=== PATIENT | female | born 1990 | race Caucasian/White ===

== ENCOUNTER 2018-09-20 22:43 | Emergency (ER) | payer MEDICAID, OTHER ==
--- NOTE | 2018-09-21 01:32 | ER Document Report ---
ED General - General Mode of Arrival: Ambulatory Information source: Patient TRAVEL OUTSIDE OF THE [place] IN LAST 30 DAYS: No <JEREMIAH KIRKLAND - Last Filed: 09/21/18 02:31> <DEANDRE ARAUJO - Last Filed: 09/21/18 06:57> <JODI RENEE - Last Filed: 09/24/18 11:03> - General Chief Complaint: Anxiety Stated Complaint: DIZZYNESS Time Seen by Provider: 09/21/18 01:01 Notes: Patient is a 28-year-old female with anxiety presenting to the emergency department complaining of multiple symptoms including dizziness, headache, heart palpitations and numbness. 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 She describes the pain as a pressure at the back of her head and further states she began to have heart palpitations and felt her entire body go numb. She also states she had a near syncopal episode which she describes as "blacking out". She states her dizziness is exacerbated with walking and relived when sitting down. She denies any extra stress lately or vomiting. Patient states she was diagnosed with strep throat last week. (JEREMIAH KIRKLAND) - Related Data Allergies/Adverse Reactions: No Known Allergies Allergy (Unverified 09/14/18 18:35) Past Medical History - General Information source: Patient - Social History Smoking Status: Never Smoker Cigarette use (# per day): No Chew tobacco use (# tins/day): No Smoking Education Provided: No Frequency of alcohol use: None Family History: Reviewed & Not Pertinent Psychiatric Medical History: Reports: Hx Anxiety, Hx Depression Past Surgical History: Reports: Hx Section, Hx Oral Surgery - wisdom teeth - Immunizations Immunizations up to date: Yes <JEREMIAH KIRKLAND - Last Filed: 09/21/18 02:31> Review of Systems - Review of Systems Constitutional: No symptoms reported EENT: No symptoms reported Cardiovascular: See HPI, Heart racing, Dizziness Respiratory: No symptoms reported Gastrointestinal: No symptoms reported Genitourinary: No symptoms reported Female Genitourinary: No symptoms reported Musculoskeletal: No symptoms reported Skin: No symptoms reported Neurological/Psychological: See HPI, Numbness <JEREMIAH KIRKLAND - Last Filed: 09/21/18 02:31> Physical Exam <JEREMIAH KIRKLAND - Last Filed: 09/21/18 02:31> <DEANDRE ARAUJO - Last Filed: 09/21/18 06:57> <JODI RENEE - Last Filed: 09/24/18 11:03> - Vital signs Vitals: Temp Pulse Resp BP Pulse Ox 98.5 F 105 H 14 128/71 H 97 09/20/18 22:43 09/20/18 22:43 09/20/18 22:43 09/20/18 22:43 09/20/18 22:43 - Notes Notes: GENERAL: Alert, interacts well. No acute distress. HEAD: Normocephalic, atraumatic. EYES: Pupils equal, round, and reactive to light. Extraocular movements intact. ENT: Oral mucosa moist, tongue midline. NECK: Full range of motion. Supple. Trachea midline. LUNGS: Clear to auscultation bilaterally, no wheezes, rales, or rhonchi. No respiratory distress. HEART: Regular rate and rhythm. No murmurs, gallops, or rubs. ABDOMEN: Soft, non-tender. Non-distended. Bowel sounds present in all 4 quadrants. EXTREMITIES: Moves all 4 extremities spontaneously. No edema, radial and dorsalis pedis pulses 2/4 bilaterally. No cyanosis. NEUROLOGICAL: Alert and oriented x3. Normal speech. Cranial nerves II through XII grossly intact. Finger to nose testing intact. No pronator drift. Able to ambulate however she states ambulating makes her feel off balance. PSYCH: Normal affect, normal mood. SKIN: Warm, dry, normal turgor. No rashes or lesions noted. (JEREMIAH KIRKLAND) Course <JEREMIAH KIRKLAND - Last Filed: 09/21/18 02:31> - Laboratory Result Diagrams: 09/21/18 04:26 <DEANDRE ARAUJO - Last Filed: 09/21/18 06:57> - Laboratory Result Diagrams: 09/21/18 04:26 - Diagnostic Test Radiology reviewed: Image reviewed, Reports reviewed - EKG Interpretation by Me EKG shows normal: Sinus rhythm Rate: Normal Rhythm: NSR <JODI RENEE - Last Filed: 09/24/18 11:03> - Re-evaluation Re-evalutation: 09/21/18 06:57 Patient was checked out to me by Dr. Renee for recheck of her carboxyhemoglobin level and reevaluation. Her carboxy hemoglobin level came back at 10.5. I did recheck it and it using the proximal hemoglobin pulse oximeter. Her level is now between 6 and 7. She is able to walk without ataxia. She looks well. She has just a very mild headache. No vomiting. He has normal coordination of movements. Feel she is safe to be discharged home. I encouraged her to return to the ER immediately if she has recurrent difficulty walking, severe headache, vomiting, or she feels unwell in any way. Patient agrees with plan will be discharged home. Dictation of this chart was performed using voice recognition software; therefore, there may be some unintended grammatical errors. 09/21/18 06:57 (DEANDRE ARAUJO) 09/21/18 03:17 Patient resting comfortably in the emergency department. CT head shows no acute findings. EKG shows no concerning findings. Patient has no family history of sudden . Her symptoms are relieved by rest and worse with movement consistent with vertigo. However, patient states she was experiencing a headache therefore CT was performed to rule out any acute pathology including subarachnoid hemorrhage. We will provide meclizine for diagnosis of BPPV. Return precautions provided 09/21/18 04:16 Upon discharge EMS called with multiple complaints of similar symptoms from same hotel concern for carbon monoxide poisoning. Will run carboxyhemoglobin at this time. (JODI RENEE) - Vital Signs Vital signs: Temp Pulse Resp BP Pulse Ox 98.5 F 105 H 22 H 126/82 H 100 09/20/18 22:43 09/20/18 22:43 09/21/18 06:01 09/21/18 06:00 09/21/18 06:01 - Laboratory Laboratory results interpreted by me: 09/21/18 09/21/18 04:26 04:26 Carboxyhemoglobin 10.5 H Creatinine 0.45 L Glucose 142 H Discharge <JEREMIAH KIRKLAND - Last Filed: 09/21/18 02:31> <DEANDRE ARAUJO - Last Filed: 09/21/18 06:57> <JODI RENEE - Last Filed: 09/24/18 11:03> - Discharge Clinical Impression: Carbon monoxide poisoning Qualifiers: Encounter type: initial encounter Injury intent: accidental or unintentional Qualified Code(s): T58.91XA - Toxic effect of carbon monoxide from unspecified source, accidental (unintentional), initial encounter Condition: Good Disposition: HOME, SELF-CARE Additional Instructions: He had an exposure to carbon monoxide. This caused your dizziness and headache. Currently your Carbon monoxide levels are back to an acceptable range. We feel that you are safe to be discharged home. Please rest over the next 24 hours. Please return to the ER if you have recurrence of difficulty walking, worsening dizziness, recurring headaches, vomiting, or if you feel unwell. Follow up with your doctor on Monday for reevaluation. Do not go back to the hotel until it is declared safe by the fire department Referrals: BHUPINDER THURMAN MD [Primary Care Provider] - Follow up as needed Scribe Attestation: 09/24/18 11:03 I personally performed the services described in the documentation, reviewed and edited the documentation which was dictated to the scribe in my presence, and it accurately records my words and actions. (JODI RENEE) Scribe Documentation - Scribe Written by Kashmir:: Kashmir Anderson, 09/21/2018 01:53 acting as scribe for :: Tim <JEREMIAH KIRKLAND - Last Filed: 09/21/18 02:31>
--- NOTE | 2018-09-21 02:35 | RADIOLOGY REPORT (SQ) ---
EXAM DESCRIPTION: CT HEAD WITHOUT IV CONTRAST COMPLETED DATE/TME: 09/21/2018 01:43 CLINICAL HISTORY: 28 years, Female, dizzy, headache, sudden onset, r/o SAH COMPARISON: None. TECHNIQUE: 189 Images stored on PACS. All CT scanners at this facility use dose modulation, iterative reconstruction, and/or weight based dosing when appropriate to reduce radiation dose to as low as reasonably achievable (ALARA). [facility]: Dose Right [facility]: CareDose [facility]: Dose Right [facility]: Teradose 4D [facility]: [employer] Technologies LIMITATIONS: None. FINDINGS: The globes are intact. The paranasal sinuses show minor mucosal thickening of the right maxillary sinus. No displaced or depressed skull fracture. No intra or extra-axial hemorrhage. CT is limited for evaluation of acute infarct. No CT evidence for large or territorial acute infarct. No mass, mass effect, or midline shift. IMPRESSION: Minor mucosal thickening right maxillary sinus. Remainder is unremarkable TECHNICAL DOCUMENTATION: Quality ID # [id number]: Final reports with documentation of one or more dose reduction techniques (e.g., Automated exposure control, adjustment of the mA and/or kV according to patient size, use of iterative reconstruction technique) 2010 [employer]- All Rights Reserved
[2018-09-21] MEDS ORDERED: MECLIZINE HCL 25 MG TABLET PO ONE (02:44)
[2018-09-21 04:53] LABS: ANION GAP 14 (5-19); BLOOD UREA NITROGEN 8 mg/dL (7-20); CALCIUM 9.5 mg/dL (8.4-10.2); CARBON DIOXIDE 25 mmol/L (22-30); CHLORIDE 102 mmol/L (98-107); GLUCOSE 142 mg/dL (75-110); POTASSIUM 4.6 mmol/L (3.6-5.0); SODIUM 140.9 mmol/L (137-145)
[2018-09-21 07:02] VITALS: BP 126/82
--- NOTE | 2018-09-21 12:40 | EKG REPORT ---
SEVERITY:- BORDERLINE ECG - SINUS RHYTHM BORDERLINE PROLONGED QT INTERVAL : Confirmed by: Elisa Bosch MD 21-Sep-2018 12:39:59
== END 2018-09-21 07:08 | disposition home or self-care (01) ==
LOC: ER 22:43
DX: F41.9 Anxiety disorder, unspecified (principal); R42 Dizziness and giddiness; R51 Headache; T58.91XA Toxic effect of carbon monoxide from unspecified source, accidental (unintentional), initial encounter; X58.XXXA Exposure to other specified factors, initial encounter; Y99.0 Civilian activity done for income or pay
CPT/HCPCS: 36415; 70450; 80048; 82375; 93005; 93010; 99284

== ENCOUNTER → 2018-11-15 | Outpatient (CLI) | payer MEDICAID ==
--- NOTE | 2018-11-15 15:16 | RADIOLOGY REPORT (SQ) ---
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 NUMBER OF VIEWS: Two views. TECHNIQUE: AP and lateral radiographic images acquired of the thoracic spine. LIMITATIONS: None. FINDINGS: MINERALIZATION: Normal. ALIGNMENT: 2 thoracolumbar scoliosis convex left. VERTEBRAE: No fracture or bone lesion. Maintained height, normal segmentation. DISCS: No significant loss of height or significant narrowing. No large osteophytes. HARDWARE: None in the spine. MEDIASTINUM AND SOFT TISSUES: Normal heart size and aortic contour. No soft tissue abnormality. VISUALIZED LUNG CASEY: Clear. OTHER: No other significant finding. IMPRESSION: 2 thoracolumbar scoliosis convex left. TECHNICAL DOCUMENTATION: JOB ID: [id number] [employer]- All Rights Reserved Reading location - IP/workstation name: [email or web address]
== END ==
LOC: OD 11:43
PROVIDERS: ATTEND Nurse Practitioner Family
DX: M40.00 Postural kyphosis, site unspecified (principal)
CPT/HCPCS: 72070

== ENCOUNTER 2020-06-06 09:10 | Emergency (ER) | payer BC, MEDICAID, OTHER ==
--- NOTE | 2020-06-06 11:53 | EKG REPORT ---
SEVERITY:- NORMAL ECG - SINUS RHYTHM : Confirmed by: Abelino Dickey MD 06-Jun-2020 11:52:35
[2020-06-06 12:22] LABS: ABSOLUTE BASOPHILS # (AUTO) 0.1 10^3/uL (0.0-0.2); ABSOLUTE EOSINOPHILS # (AUTO) 0.1 10^3/uL (0.0-0.6); ABSOLUTE LYMPHOCYTES (AUTO) 2.5 10^3/uL (0.5-4.7); ABSOLUTE MONOCYTES (AUTO) 0.4 10^3/uL (0.1-1.4); BASOPHILS % (AUTO) 0.8 % (0-2); EOSINOPHILS % (AUTO) 1.5 % (0-6); HEMATOCRIT 37.9 % (36.0-47.0); HEMOGLOBIN 12.5 g/dL (12.0-15.5); LYMPHOCYTES % (AUTO) 30.3 % (13-45); MEAN CORPUSCULAR HEMOGLOBIN 26.2 pg (27.0-33.4); MEAN CORPUSCULAR VOLUME 79 fl (80-97); MONOCYTES % (AUTO) 5.5 % (3-13); PLATELET COUNT 258 10^3/uL (150-450); RED BLOOD COUNT 4.78 10^6/uL (3.72-5.28); RED CELL DISTRIBUTION WIDTH 14.7 % (11.5-14.0); SEGMENTED NEUTROPHILS % (AUTO) 61.9 % (42-78); TOTAL CELLS COUNTED % (AUTO) 100 %; WHITE BLOOD COUNT 8.2 10^3/uL (4.0-10.5)
--- NOTE | 2020-06-06 12:35 | ER Document Report ---
ED Respiratory Problem - General Chief Complaint: Shortness Of Breath Stated Complaint: SHORTNESS OF BREATH Time Seen by Provider: 06/06/20 10:01 Primary Care Provider: MAYTE JEAN BAPTISTE DO [NO LOCAL MD] - Follow up in 3-5 days Notes: Patient is a 30-year-old female who presents to the emergency department with a chief complaint of shortness of breath. Patient states that she has felt short of breath for the past 3 days. She states that every time she takes a deep breath in, she ends up having pain in her chest. Patient states that she vapes. She is currently on Mirena. Denies any contact with anybody under i nvestigation of COVID-19 or anyone who has tested positive for COVID-19. Denies any fever, body aches, or chills. Denies any nausea, vomiting, or diarrhea. TRAVEL OUTSIDE OF THE [place] IN LAST 30 DAYS: No - Related Data Allergies/Adverse Reactions: No Known Allergies Allergy (Verified 06/06/20 10:07) Past Medical History - Social History Smoking Status: Current Every Day Smoker Family History: Reviewed & Not Pertinent Patient has homicidal ideation: No Renal/ Medical History: Denies: Hx Peritoneal Dialysis Psychiatric Medical History: Reports: Hx Anxiety, Hx Depression Past Surgical History: Reports: Hx Section, Hx Oral Surgery - wisdom teeth - Immunizations Immunizations up to date: Yes Review of Systems - Review of Systems Notes: REVIEW OF SYSTEMS: CONSTITUTIONAL : Denies recent illness. Denies recent unintentional weight loss. Denies fever, chills, or sweats. EENT: Denies eye, ear, throat, or mouth pain, discharge, or symptoms. Denies nasal or sinus congestion. CARDIOVASCULAR: Denies chest pain. RESPIRATORY: GASTROINTESTINAL: Denies nausea, vomiting, and diarrhea. Denies abdominal pain. Denies constipation. GENITOURINARY: Denies difficulty urinating, burning, blood in urine, urgency or frequency. MUSCULOSKELETAL: Denies neck and back pain. Denies joint pain or swelling. SKIN: Denies rash, itchiness, or lesions HEMATOLOGIC : Denies easy bruising or bleeding. LYMPHATIC: Denies swollen, painful, enlarged glands. NEUROLOGICAL: Denies no numbness or tingling denies weakness. Denies headache. Denies altered mental status. Denies alteration in speech. PSYCHIATRIC: Denies stress, anxiety, alteration in sleep patterns, or depression. All other systems reviewed and negative. Physical Exam - Vital signs Vitals: Temp Pulse Resp BP Pulse Ox 98.7 F 85 16 125/77 100 06/06/20 10:08 06/06/20 10:08 06/06/20 10:08 06/06/20 10:08 06/06/20 10:08 - Notes Notes: PHYSICAL EXAMINATION: GENERAL: Appears well, healthy, well-nourished, no acute distress. HEAD: Normocephalic, atraumatic. EYES: PERRL, conjunctiva normal, all extraocular movements intact, sclera nonicteric ENT: Moist mucous membranes. NECK: Supple, no noticeable swelling, redness, rash. Normal range of motion. LUNGS: Equal breath sounds bilaterally and clear to auscultation. No wheezes rales or rhonchi. CARDIOVASCULAR: S1-S2, regular rate, regular rhythm. Radial pulses 2+, normal. ABDOMEN: Normoactive bowel sounds. Soft, nontender, no guarding, no rebound te nderness, and no masses palpated. EXTREMITIES: Normal strength and range of motion, no pitting or edema. No cyanosis. NEUROLOGICAL: Moves all extremities upon command. Strength 5/5 in all extremi ties. PSYCH: Normal mood, normal affect. SKIN: Warm, dry. No rash, lesions, ulcerations noted. Normal skin turgor. Course - Re-evaluation Re-evalutation: 06/06/20 13:10 Hematology is unremarkable. D-dimer is negative,. I have a low suspicion for a pulmonary emboli based off of this laboratory study. Chemistries are unremar kable. Chest x-ray is normal. I reviewed it myself and there was no pneumonia noted. I had a lengthy conversation with the patient in regards to her vaping. I advised that she stop vaping. We will also start her on cetirizine, as this may be allergy related. She is in agreement with this plan. She will follow-up with her primary care provider. Follow-up precautions were given. Verbal disc harge instructions were given to the patient. They verbalized understanding. They are stable for discharge. - Vital Signs Vital signs: Temp Pulse Resp BP Pulse Ox 98.8 F 84 16 124/83 100 06/06/20 13:21 06/06/20 13:21 06/06/20 13:21 06/06/20 13:21 06/06/20 13:21 - Laboratory Result Diagrams: 06/06/20 11:44 06/06/20 11:44 Laboratory results interpreted by me: 06/06/20 06/06/20 11:44 11:44 MCV 79 L MCH 26.2 L RDW 14.7 H Glucose 111 H Calcium 10.3 H Total Protein 8.6 H Discharge - Discharge Clinical Impression: Shortness of breath, Seasonal allergies Condition: Stable Disposition: HOME, SELF-CARE Additional Instructions: You were seen today in the emergency department for shortness of breath. The most likely cause of your shortness of breath is from vaping. Please stop v aping, this will help you breathe better. Start cetirizine to help with seasonal allergies. Follow-up with your primary care provider. Prescriptions: Cetirizine HCl [All Day Allergy] 10 mg PO DAILY #30 tablet Referrals: MAYTE JEAN BAPTISET DO [NO LOCAL MD] - Follow up in 3-5 days
[2020-06-06 12:44] LABS: ALBUMIN 4.9 g/dL (3.5-5.0); ALKALINE PHOSPHATASE 50 U/L (38-126); ANION GAP 11 (5-19); ASPARTATE AMINO TRANSFERASE 26 U/L (14-36); BILIRUBIN,TOTAL 0.6 mg/dL (0.2-1.3); BLOOD UREA NITROGEN 11 mg/dL (7-20); CALCIUM 10.3 mg/dL (8.4-10.2); CARBON DIOXIDE 27 mmol/L (22-30); CHLORIDE 103 mmol/L (98-107); GLUCOSE 111 mg/dL (75-110); POTASSIUM 4.8 mmol/L (3.6-5.0); TOTAL PROTEIN 8.6 g/dL (6.3-8.2)
--- NOTE | 2020-06-06 12:48 | RADIOLOGY REPORT (SQ) ---
EXAM DESCRIPTION: CHEST SINGLE VIEW IMAGES COMPLETED DATE/TIME: 06/06/2020 12:37 pm REASON FOR STUDY: shortness of breath COMPARISON: None. EXAM PARAMETERS: NUMBER OF VIEWS: One view. TECHNIQUE: Single frontal radiographic view of the chest acquired. RADIATION DOSE: NA LIMITATIONS: None. FINDINGS: LUNGS AND PLEURA: No opacities, masses or pneumothorax. No pleural effusion. MEDIASTINUM AND HILAR STRUCTURES: No masses. Contour normal. HEART AND VASCULAR STRUCTURES: Heart normal in size. Normal vasculature. BONES: No acute findings. HARDWARE: None in the chest. OTHER: No other significant finding. IMPRESSION: NO ACUTE RADIOGRAPHIC FINDING IN THE CHEST. TECHNICAL DOCUMENTATION: JOB ID: [id number] 2010 [employer]- All Rights Reserved Reading location - IP/workstation name: [email or web address]
[2020-06-06 13:24] VITALS: BP 124/83
== END 2020-06-06 13:26 | disposition home or self-care (01) ==
LOC: ER 09:10
DX: R06.02 Shortness of breath (principal); J30.2 Other seasonal allergic rhinitis; F17.290 Nicotine dependence, other tobacco product, uncomplicated
CPT/HCPCS: 36415; 71045; 80053; 83690; 85025; 85379; 93005; 93010; 99284

== ENCOUNTER 2020-08-18 15:46 | Emergency (ER) | payer BC ==
--- NOTE | 2020-08-18 16:35 | ER Document Report ---
ED Medical Screen (RME) - General Stated Complaint: CHEST PAIN,BODY NUMBNESS Time Seen by Provider: 08/18/20 16:19 Primary Care Provider: MAYTE JEAN BAPTISTE DO [Primary Care Provider] - Follow up as needed TRAVEL OUTSIDE OF THE [place] IN LAST 30 DAYS: No - HPI Notes: 08/18/20 16:33 30 year old female to the ED with C/O right sided chest pain with associated bilateral arm numbness, facial numbness, palpitations that started this morning at 10:30 while she was driving her car. States that she pulled over during the episode and called the medics. They felt like she may have had a panic attack and sent her home. She states throughout the day she keeps having these episodes. She has never had a panic attack before and she states she doesn't feel particularly anxious. She vapes. She is not diabetic. Does not have elevated blood pressure or hyperlipidemia. no family history of AMI. I have performed a brief medical screening exam on the patient and determined that she needs further evaluations. I have placed initial orders to help expedite her care. - Related Data Allergies/Adverse Reactions: No Known Allergies Allergy (Verified 06/06/20 10:07) Past Medical History Renal/ Medical History: Denies: Hx Peritoneal Dialysis Psychiatric Medical History: Reports: Hx Anxiety, Hx Depression Past Surgical History: Reports: Hx Section, Hx Oral Surgery - wisdom teeth - Immunizations Immunizations up to date: Yes Physical Exam - Vital signs Vitals: Temp Pulse Resp BP Pulse Ox 98.8 F 104 H 18 127/69 H 99 08/18/20 16:05 08/18/20 16:05 08/18/20 16:05 08/18/20 16:05 08/18/20 16:05 Course - Vital Signs Vital signs: Temp Pulse Resp BP Pulse Ox 98.8 F 104 H 18 127/69 H 99 08/18/20 16:05 08/18/20 16:05 08/18/20 16:05 08/18/20 16:05 08/18/20 16:05 Doctor's Discharge - Discharge Referrals: MAYTE JEAN BAPTISTE DO [Primary Care Provider] - Follow up as needed
--- NOTE | 2020-08-18 17:02 | RADIOLOGY REPORT (SQ) ---
EXAM DESCRIPTION: CHEST SINGLE VIEW IMAGES COMPLETED DATE/TIME: 08/18/2020 4:46 pm REASON FOR STUDY: chest pain, near syncope, palpitations COMPARISON: 06/06/2020 EXAM PARAMETERS: NUMBER OF VIEWS: One view. TECHNIQUE: Single frontal radiographic view of the chest acquired. RADIATION DOSE: NA LIMITATIONS: None. FINDINGS: LUNGS AND PLEURA: No opacities, masses or pneumothorax. No pleural effusion. MEDIASTINUM AND HILAR STRUCTURES: No masses. Contour normal. HEART AND VASCULAR STRUCTURES: Heart normal in size. Normal vasculature. BONES: No acute findings. HARDWARE: None in the chest. OTHER: No other significant finding. IMPRESSION: NO ACUTE RADIOGRAPHIC FINDING IN THE CHEST. TECHNICAL DOCUMENTATION: JOB ID: [id number] 2010 [employer]- All Rights Reserved Reading location - IP/workstation name: [email or web address]
[2020-08-18 17:12] LABS: ABSOLUTE BASOPHILS # (AUTO) 0.1 10^3/uL (0.0-0.2); ABSOLUTE EOSINOPHILS # (AUTO) 0.1 10^3/uL (0.0-0.6); ABSOLUTE LYMPHOCYTES (AUTO) 2.1 10^3/uL (0.5-4.7); ABSOLUTE MONOCYTES (AUTO) 0.5 10^3/uL (0.1-1.4); BASOPHILS % (AUTO) 0.5 % (0-2); EOSINOPHILS % (AUTO) 0.8 % (0-6); HEMATOCRIT 33.9 % (36.0-47.0); HEMOGLOBIN 11.3 g/dL (12.0-15.5); LYMPHOCYTES % (AUTO) 18.3 % (13-45); MEAN CORPUSCULAR HEMOGLOBIN 26.5 pg (27.0-33.4); MEAN CORPUSCULAR HGB CONC 33.3 g/dL (32.0-36.0); MEAN CORPUSCULAR VOLUME 80 fl (80-97); PLATELET COUNT 259 10^3/uL (150-450); RED BLOOD COUNT 4.27 10^6/uL (3.72-5.28); SEGMENTED NEUTROPHILS % (AUTO) 76.4 % (42-78); TOTAL CELLS COUNTED % (AUTO) 100 %; WHITE BLOOD COUNT 11.7 10^3/uL (4.0-10.5)
[2020-08-18 17:19] LABS: INTERNATIONAL RATION (INR) 1.01; PROTHROMBIN TIME 13.5 SEC (11.4-15.4)
[2020-08-18 17:29] LABS: APPEARANCE,URINE CLEAR; BILIRUBIN,URINE NEGATIVE (NEGATIVE); COLOR,URINE STRAW; GLUCOSE, URINE NEGATIVE (NEGATIVE); KETONES,URINE NEGATIVE (NEGATIVE); PROTEIN,URINE NEGATIVE (NEGATIVE); URINE SPECIFIC GRAVITY 1.006; UROBILINOGEN,URINE NEGATIVE mg/dL (<2.0)
[2020-08-18 17:30] LABS: ALBUMIN 4.5 g/dL (3.5-5.0); ALKALINE PHOSPHATASE 53 U/L (38-126); ANION GAP 9 (5-19); ASPARTATE AMINO TRANSFERASE 21 U/L (14-36); BILIRUBIN,DIRECT 0.2 mg/dL (0.0-0.4); BILIRUBIN,TOTAL 0.6 mg/dL (0.2-1.3); BLOOD UREA NITROGEN 8 mg/dL (7-20); CALCIUM 9.8 mg/dL (8.4-10.2); CARBON DIOXIDE 25 mmol/L (22-30); CHLORIDE 104 mmol/L (98-107); GLUCOSE 100 mg/dL (75-110); POTASSIUM 4.7 mmol/L (3.6-5.0); TOTAL PROTEIN 7.4 g/dL (6.3-8.2)
[2020-08-18] MEDS ORDERED: NORMAL SALINE 1000 ML 1,000 ML IV ONE (22:02)
--- NOTE | 2020-08-18 22:07 | ER Document Report ---
ED General - General Stated Complaint: CHEST PAIN,BODY NUMBNESS Time Seen by Provider: 08/18/20 16:19 Primary Care Provider: MAYTE JEAN BAPTISTE DO [Primary Care Provider] - Follow up as needed TRAVEL OUTSIDE OF THE [place] IN LAST 30 DAYS: No - HPI Patient complains to provider of: chest pain Notes: 30 y/o previously healthy female who presents after developing total body numbness and right sided chest pain at about 10 am she called ems and they thought she was having a panic attack she subsequently "fought it" at home until about 4 pm when she came to the ED she now feels largely OK aside from ongoing right sided chest pain she denies shortness of breath, fever, chills or cough no leg swelling or h/o dvt or pe she does vape regularly - Related Data Allergies/Adverse Reactions: No Known Allergies Allergy (Verified 06/06/20 10:07) Past Medical History - Social History Smoking Status: Current Some Day Smoker - vaping Family History: Reviewed & Not Pertinent Renal/ Medical History: Denies: Hx Peritoneal Dialysis Psychiatric Medical History: Reports: Hx Anxiety, Hx Depression Past Surgical History: Reports: Hx Section, Hx Oral Surgery - wisdom teeth - Immunizations Immunizations up to date: Yes Review of Systems - Review of Systems Constitutional: No symptoms reported EENT: No symptoms reported Cardiovascular: Chest pain Respiratory: No symptoms reported Gastrointestinal: No symptoms reported Genitourinary: No symptoms reported Female Genitourinary: No symptoms reported Musculoskeletal: No symptoms reported Skin: No symptoms reported Hematologic/Lymphatic: No symptoms reported Neurological/Psychological: Numbness Physical Exam - Vital signs Vitals: Temp Pulse Resp BP Pulse Ox 98.8 F 104 H 18 127/69 H 99 08/18/20 16:05 08/18/20 16:05 08/18/20 16:05 08/18/20 16:05 08/18/20 16:05 Interpretation: Normal - General General appearance: Appears well, Alert - HEENT Head: Normocephalic, Atraumatic Eyes: Normal Pupils: PERRL - Respiratory Respiratory status: No respiratory distress Chest status: Nontender Breath sounds: Normal Chest palpation: Normal - Cardiovascular Rhythm: Regular Heart sounds: Normal auscultation Murmur: No - Abdominal Inspection: Normal Distension: No distension Bowel sounds: Normal Tenderness: Nontender Organomegaly: No organomegaly - Back Back: Normal, Nontender - Extremities General upper extremity: Normal inspection, Nontender, Normal color, Normal ROM, Normal temperature General lower extremity: Normal inspection, Nontender, Normal color, Normal ROM, Normal temperature, Normal weight bearing. No: Chris's sign - Neurological Neuro grossly intact: Yes Cognition: Normal Orientation: AAOx4 [place] Coma Scale Eye Opening: Spontaneous Akhil Coma Scale Verbal: Oriented Akhil Coma Scale Motor: Obeys Commands [place] Coma Scale Total: 15 Speech: Normal Motor strength normal: LUE, RUE, LLE, RLE Sensory: Normal - Psychological Associated symptoms: Normal affect, Normal mood - Skin Skin Temperature: Warm Skin Moisture: Dry Skin Color: Normal Course - Re-evaluation Re-evalutation: 08/18/20 22:05 EKG is sinus tach cxr ok labs reassuring will add d dimer to eval for pe given tachycardia suspect anxiety reaction vs vape related pathology overall, nontoxic and well appearing neurologically she is completely intact 08/18/20 23:41 serial trop is neg dimer reassuring patient feeling better after ivf hydration in ED recommend pcp follow up for further care as outpt - consideration of cards referral for possible holter monitoring? - Vital Signs Vital signs: Temp Pulse Resp BP Pulse Ox 98.8 F 104 H 13 124/70 100 08/18/20 22:52 08/18/20 16:05 08/18/20 22:40 08/18/20 22:40 08/18/20 22:40 - Laboratory Result Diagrams: 08/18/20 17:00 08/18/20 17:00 Laboratory results interpreted by me: 08/18/20 17:00 WBC 11.7 H Hgb 11.3 L Hct 33.9 L MCH 26.5 L Absolute Neuts (auto) 9.0 H - Diagnostic Test Radiology reviewed: Reports reviewed - EKG Interpretation by Me Additional EKG results interpreted by me: 08/18/20 22:06 sinus tachy 107, borderline T abnormality, no ST segment changes, normal R wave progression Discharge - Discharge Clinical Impression: Palpitations Condition: Stable Disposition: HOME, SELF-CARE Instructions: Palpitations (Irregular or Rapid Heartrate) ([facility]), Numbness or Paresthesia ([facility]) Additional Instructions: Please follow up with your primary care provider as an outpatient for further care Return to the ED with worsening symptoms or concerns Referrals: MAYTE JEAN BAPTISTE DO [Primary Care Provider] - Follow up as needed
[2020-08-19 00:08] VITALS: BP 120/62
--- NOTE | 2020-08-19 13:01 | EKG REPORT ---
SEVERITY:- BORDERLINE ECG - SINUS TACHYCARDIA BORDERLINE T ABNORMALITIES, ANTERIOR LEADS : Confirmed by: Scott Kincaid MD 19-Aug-2020 13:01:17
== END 2020-08-19 00:08 | disposition home or self-care (01) ==
LOC: ER 15:46
DX: R00.2 Palpitations (principal); R07.9 Chest pain, unspecified; R20.0 Anesthesia of skin; F17.290 Nicotine dependence, other tobacco product, uncomplicated
CPT/HCPCS: 93005; 99285; 96360; 36415; 84443; 85025; 85610; 85730; 80053; 81001; 84484; 85379; 71045; 93010; J7030

== ENCOUNTER 2020-08-19 13:48 | Emergency (ER) | payer BC ==
[2020-08-19 15:24] LABS: ABSOLUTE EOSINOPHILS # (AUTO) 0.1 10^3/uL (0.0-0.6); ABSOLUTE LYMPHOCYTES (AUTO) 2.4 10^3/uL (0.5-4.7); ABSOLUTE MONOCYTES (AUTO) 0.3 10^3/uL (0.1-1.4); ABSOLUTE NEUT (AUTO) 6.4 10^3/uL (1.7-8.2); BASOPHILS % (AUTO) 0.5 % (0-2); EOSINOPHILS % (AUTO) 1.4 % (0-6); HEMATOCRIT 34.4 % (36.0-47.0); HEMOGLOBIN 11.7 g/dL (12.0-15.5); LYMPHOCYTES % (AUTO) 25.4 % (13-45); MEAN CORPUSCULAR HGB CONC 33.9 g/dL (32.0-36.0); MEAN CORPUSCULAR VOLUME 80 fl (80-97); MONOCYTES % (AUTO) 3.7 % (3-13); PLATELET COUNT 236 10^3/uL (150-450); RED BLOOD COUNT 4.31 10^6/uL (3.72-5.28); RED CELL DISTRIBUTION WIDTH 13.7 % (11.5-14.0); TOTAL CELLS COUNTED % (AUTO) 100 %; WHITE BLOOD COUNT 9.3 10^3/uL (4.0-10.5)
[2020-08-19 15:26] LABS: APPEARANCE,URINE CLEAR; BILIRUBIN,URINE NEGATIVE (NEGATIVE); COLOR,URINE YELLOW; GLUCOSE, URINE NEGATIVE (NEGATIVE); KETONES,URINE NEGATIVE (NEGATIVE); LEUKOCYTE ESTERASE,URINE TRACE (NEGATIVE); NITRITE,URINE NEGATIVE (NEGATIVE); PROTEIN,URINE NEGATIVE (NEGATIVE); URINE SPECIFIC GRAVITY 1.013; UROBILINOGEN,URINE NEGATIVE mg/dL (<2.0)
[2020-08-19 15:42] LABS: URINE AMPHETAMINES SCREEN NEGATIVE; URINE BARBITURATES SCREEN NEGATIVE; URINE BENZODIAZEPINES SCREEN NEGATIVE; URINE COCAINE SCREEN NEGATIVE; URINE MARIJUANA (THC) SCREEN NEGATIVE; URINE METHADONE SCREEN NEGATIVE; URINE PHENCYCLIDINE SCREEN NEGATIVE
[2020-08-19 15:53] LABS: ALBUMIN 4.5 g/dL (3.5-5.0); ALKALINE PHOSPHATASE 48 U/L (38-126); ANION GAP 11 (5-19); ASPARTATE AMINO TRANSFERASE 21 U/L (14-36); BILIRUBIN,DIRECT 0.3 mg/dL (0.0-0.4); BILIRUBIN,TOTAL 0.6 mg/dL (0.2-1.3); BLOOD UREA NITROGEN 7 mg/dL (7-20); CALCIUM 9.4 mg/dL (8.4-10.2); CARBON DIOXIDE 26 mmol/L (22-30); CHLORIDE 104 mmol/L (98-107); GLUCOSE 137 mg/dL (75-110); POTASSIUM 3.9 mmol/L (3.6-5.0); TOTAL PROTEIN 7.5 g/dL (6.3-8.2)
--- NOTE | 2020-08-19 16:17 | ER Document Report ---
Entered by IRINEO AHMADI SCRIBE 08/19/20 1427 Acting as scribe for:GWEN GARZA MD ED General - General Chief Complaint: Shortness Of Breath Stated Complaint: HEADACHE,SHORTNESS OF BREATH,DIZZINESS Primary Care Provider: MAYTE JEAN BAPTISTE DO [Primary Care Provider] - Follow up as needed Mode of Arrival: Ambulatory Information source: Patient Notes: This 30 year old female patient presents to the emergency department today with complaints of right upper chest pain and "feeling like she was going to pass out any time she talks or sings". This patient was seen yesterday for similar complaints and she was diagnosed with anxiety and heart palpitations. She repo rts that her symptoms were still present when she woke up this morning so she called her PCP who told her she should take some of her xanax because he thought it was anxiety related as well. She is seen by doctor Keke but she talked to one of his PAs today. TRAVEL OUTSIDE OF THE [place] IN LAST 30 DAYS: No - Related Data Allergies/Adverse Reactions: No Known Allergies Allergy (Verified 06/06/20 10:07) Past Medical History - General Information source: Patient - Social History Smoking Status: Never Smoker Cigarette use (# per day): No Chew tobacco use (# tins/day): No Frequency of alcohol use: Occasional Drug Abuse: None Family History: Reviewed & Not Pertinent Psychiatric Medical History: Reports: Hx Anxiety, Hx Depression Past Surgical History: Reports: Hx Section, Hx Oral Surgery - wisdom teeth - Immunizations Immunizations up to date: Yes Review of Systems - Review of Systems Constitutional: No symptoms reported EENT: No symptoms reported Cardiovascular: See HPI, Chest pain Respiratory: No symptoms reported Gastrointestinal: No symptoms reported Genitourinary: No symptoms reported Female Genitourinary: No symptoms reported Musculoskeletal: No symptoms reported Skin: No symptoms reported Hematologic/Lymphatic: No symptoms reported Neurological/Psychological: See HPI, Anxiety -: Yes All other systems reviewed and negative Physical Exam - Vital signs Vitals: Temp Pulse Resp BP Pulse Ox 98.4 F 90 16 138/78 H 100 08/19/20 13:52 08/19/20 13:52 08/19/20 13:52 08/19/20 13:52 08/19/20 13:52 - Notes Notes: Physical Exam: General: Alert, obese. HEENT: Normocephalic. Atraumatic. PERRL. Extraocular movements intact. Oropharynx clear. Neck: Supple. Non-tender. Respiratory: No respiratory distress. Clear and equal breath sounds bilaterally. Sternal tenderness to palpation. Cardiovascular: Regular rate and rhythm. Abdominal: Obese. Non-tender. No distension. Normal Bowel Sounds. Back: No gross abnormalities. Extremities: Moves all four extremities. Upper extremities: Normal inspection. Normal ROM. Lower extremities: Normal inspection. No edema. Normal ROM. Neurological: Normal cognition. AAOx4. Normal speech. Psychological: Normal affect. Normal Mood. Skin: Warm. Dry. Normal color. Course - Re-evaluation Re-evalutation: 08/19/20 17:05 Lab work is unremarkable. The patient's descriptions of headache, shortness of breath, dizziness, total body numbness, fighting through her symptoms, chest hurting, limbs numb Conda tongue numb, feeling like passing out when she talks on the phone understandings, cannot catch my breath, is all consistent with anxiety and panic attacks. She does have a therapist she sees in [place] every 2 weeks, but her last visit was 3 weeks ago and she is 1 week overdue for that visit. In the past she had been on Xanax and Adderall, she states she took Xanax earlier today at the instruction of her primary care, but her urine drug screen is negative. She last had her month supply of Adderall and Xanax filled at the end of May 2020. - Vital Signs Vital signs: Temp Pulse Resp BP Pulse Ox 98.2 F 82 17 132/72 H 98 08/19/20 16:37 08/19/20 16:37 08/19/20 16:37 08/19/20 16:37 08/19/20 16:37 - Laboratory Result Diagrams: 08/19/20 14:55 08/19/20 14:55 Laboratory results interpreted by me: 08/19/20 08/19/20 08/19/20 14:55 14:55 14:55 Hgb 11.7 L Hct 34.4 L Glucose 137 H Ur Leukocyte Esterase TRACE H - Diagnostic Test Radiology reviewed: Image reviewed, Reports reviewed - Chest x-ray does not show acute cardiopulmonary process. Discharge - Discharge Clinical Impression: Anxiety disorder Qualifiers: Anxiety disorder type: generalized anxiety disorder Qualified Code(s): F41.1 - Generalized anxiety disorder Condition: Stable Disposition: HOME, SELF-CARE Additional Instructions: Anxiety: The physician feels that some of your health problems are being caused by anxiety. Anxiety affects your health in many ways. Anxiety alone can cause palpitations, sweats, chest pains, abdominal pains, shortness of breath, and headaches. It contributes to ulcer disease, high blood pressure, irritable bowel syndrome, and has been shown to cause flare-ups of many other diseases. Anxiety is not a simple disorder to treat. If the anxiety is due to recent life stresses, you may simply need time to "work through" the changes. If the anxiety is due to an underlying unhappiness with yourself or due to psychiatric disturbance, professional help will be needed. Your physician can refer you for further help if needed. Anti-anxiety medication is occasionally given if the stress is acute or if you are having trouble sleeping. Chronic or frequent use of these medications is not a good idea because the body becomes reliant on it, preventing you from dealing with life's normal stresses. The evaluation today of your symptoms which include headache, shortness of breath, dizziness, numbness and feeling like passing out was unremarkable. Your lab work was all normal including tests that look for blood clotting as a potential cause of your shortness of breath. Your chest x-ray was normal. You should follow-up with your primary care provider or try to get back with your therapist as soon as you can to help manage the symptoms if they are not improving. RETURN TO THE EMERGENCY ROOM IF ANY NEW OR WORSENING SYMPTOMS. Referrals: MAYTE JEAN BAPTISTE, DO [Primary Care Provider] - Follow up as needed I personally performed the services described in the documentation, reviewed and edited the documentation which was dictated to the scribe in my presence, and it accurately records my words and actions.
[2020-08-19 16:39] VITALS: BP 132/72
== END 2020-08-19 17:27 | disposition home or self-care (01) ==
LOC: ER 13:48
DX: F41.1 Generalized anxiety disorder (principal); R06.02 Shortness of breath; R51 Headache; R42 Dizziness and giddiness
CPT/HCPCS: 36415; 80053; 80307; 81001; 84703; 85025; 85379; 99283

== ENCOUNTER 2020-08-19 22:54 | Emergency (ER) | payer BC ==
[2020-08-20] MEDS ORDERED: ALBUTEROL SULFATE 0.083% NEB 2.5 MG/3 ML AMPUL NEB ONE (01:20)
--- NOTE | 2020-08-20 01:24 | ER Document Report ---
ED Medical Screen (RME) - General Chief Complaint: Chest Tightness Stated Complaint: CHEST TIGHTNESS/WEAKNESS Time Seen by Provider: 08/20/20 01:20 Primary Care Provider: MAYTE JEAN BAPTISTE DO [Primary Care Provider] - Follow up as needed Mode of Arrival: Ambulatory Information source: Patient Notes: 30-year-old female coming in today with shortness of breath, numbness that goes from her right arm across to her left arm. She was seen here couple days ago and worked up fully. She was seen earlier today and worked up again. General: No acute distress Cardiac regular rate and rhythm Pulmonary no respiratory distress Abdomen nondistended Neuro no focal neuro deficits I have greeted and performed a rapid initial assessment of this patient. A comprehensive ED assessment and evaluation of the patient, analysis of test results and completion of the medical decision making process will be conducted by additional ED providers. TRAVEL OUTSIDE OF THE [place] IN LAST 30 DAYS: No - Related Data Allergies/Adverse Reactions: No Known Allergies Allergy (Verified 06/06/20 10:07) Past Medical History Renal/ Medical History: Denies: Hx Peritoneal Dialysis Psychiatric Medical History: Reports: Hx Anxiety, Hx Depression Past Surgical History: Reports: Hx Section, Hx Oral Surgery - wisdom teeth - Immunizations Immunizations up to date: Yes Physical Exam - Vital signs Vitals: Temp Pulse Resp BP Pulse Ox 98.3 F 79 20 131/85 H 99 08/19/20 23:32 08/19/20 23:32 08/19/20 23:32 08/19/20 23:32 08/19/20 23:32 Course - Vital Signs Vital signs: Temp Pulse Resp BP Pulse Ox 98.3 F 79 20 131/85 H 99 08/19/20 23:32 08/19/20 23:32 08/19/20 23:32 08/19/20 23:32 08/19/20 23:32 Doctor's Discharge - Discharge Referrals: MAYTE JEAN BAPTISTE DO [Primary Care Provider] - Follow up as needed
[2020-08-20] MEDS ORDERED: ACETAMINOPHEN 325 MG TABLET PO ONE (05:00)
[2020-08-20] MEDS ORDERED: ALPRAZOLAM 0.5 MG TABLET PO ONE (05:00)
--- NOTE | 2020-08-20 06:06 | ER Document Report ---
ED General - General Mode of Arrival: Ambulatory TRAVEL OUTSIDE OF THE [place] IN LAST 30 DAYS: No - General Chief Complaint: Chest Pain Stated Complaint: CHEST TIGHTNESS/WEAKNESS Time Seen by Provider: 08/20/20 01:20 Primary Care Provider: [facility] [Provider Group] - Follow up as needed (Therapy) [facility] [Outside] - Follow up as needed (Medication Management) [facility] [Outside] - Follow up as needed [facility] [Outside] - Follow up as needed MAYTE JEAN BAPTISTE DO [Primary Care Provider] - Follow up tomorrow - [facility] Notes: 30-year-old female to the emergency department with complaints of persistent episodes of lightheadedness, chest pain, or whole body numbness that began 2 days ago. This will make her third visit to the emergency department. She states that she was seen on the and for the same symptoms. She states that after she seen on the she was told that it is believed that with her anxiety. She has a prescription from her primary care physician for Xanax 0.25 mg 3 times daily. She states she took it yesterday but she felt like it did not help and that is why she came to be seen again. She denies any fevers or chills. She denies any sick contact with anyone with coronavirus. She has a history of high blood pressure but denies diabetes or hypertension. She has not recently been traveling. She uses the Mirena but she has no other exogenous hormone therapy. She not recently been traveling or had surgery. She does not feel particularly short of breath. She does have a history of anxiety and was told 2 days ago that some of her symptoms could be related to vaping. She states she is completely stopped vaping on the . She denies any SI, HI, hallucinations. (TERESA GOODE) - Related Data Allergies/Adverse Reactions: No Known Allergies Allergy (Verified 06/06/20 10:07) Past Medical History - General Information source: Patient - Social History Smoking Status: Current Every Day Smoker - Vaping Frequency of alcohol use: Social Drug Abuse: None Family History: Reviewed & Not Pertinent Patient has homicidal ideation: No Renal/ Medical History: Denies: Hx Peritoneal Dialysis Psychiatric Medical History: Reports: Hx Anxiety, Hx Depression Past Surgical History: Reports: Hx Section, Hx Oral Surgery - wisdom teeth - Immunizations Immunizations up to date: Yes Review of Systems - Review of Systems Constitutional: denies: Chills, Fever EENT: No symptoms reported Cardiovascular: Chest pain, Palpitations, Heart racing, Lightheaded. denies: Dyspnea, Syncope, Dizziness Respiratory: denies: Cough, Short of breath Gastrointestinal: denies: Abdominal pain, Diarrhea, Nausea, Vomiting Musculoskeletal: No symptoms reported Skin: No symptoms reported Hematologic/Lymphatic: No symptoms reported Neurological/Psychological: No symptoms reported -: Yes All other systems reviewed and negative Physical Exam - Vital signs Interpretation: Normal - General General appearance: Appears well, Alert, Anxious - HEENT Head: Normocephalic, Atraumatic Eyes: Normal Pupils: PERRL - Respiratory Respiratory status: No respiratory distress Chest status: Nontender Breath sounds: Normal. No: Rales, Rhonchi, Wheezing Chest palpation: Normal - Cardiovascular Rhythm: Regular Heart sounds: Normal auscultation Murmur: No - Abdominal Inspection: Normal Distension: No distension Bowel sounds: Normal Tenderness: Nontender Organomegaly: No organomegaly - Back Back: Normal, Nontender - Extremities General upper extremity: Normal inspection, Nontender, Normal color, Normal ROM, Normal temperature General lower extremity: Normal inspection, Nontender, Normal color, Normal ROM, Normal temperature, Normal weight bearing. No: Chris's sign - Neurological Neuro grossly intact: Yes Cognition: Normal Orientation: AAOx4 Akhil Coma Scale Eye Opening: Spontaneous Akhil Coma Scale Verbal: Oriented Akhil Coma Scale Motor: Obeys Commands Akhil Coma Scale Total: 15 Speech: Normal Motor strength normal: LUE, RUE, LLE, RLE Additional motor exam normals: Equal paper twister tender. No: Pronator drift Sensory: Normal - Psychological Associated symptoms: Normal mood, Anxious - Skin Skin Temperature: Warm Skin Moisture: Dry Skin Color: Normal - Vital signs Vitals: Temp Pulse Resp BP Pulse Ox 98.3 F 79 20 131/85 H 99 08/19/20 23:32 08/19/20 23:32 08/19/20 23:32 08/19/20 23:32 08/19/20 23:32 - Cardiovascular Notes: No pedal edema (TERESA GOODE) Course - Re-evaluation Re-evalutation: 08/20/20 06:12 Patient and I had a lengthy conversation about her symptomology and her past several visits with us. She has had a very detailed work-up the past couple days. Her troponins have been negative her hemoglobins are stable, chest x-ray is negative. She even had a d-dimer. D-dimer was within normal limits. We discussed what all of these lab findings meant. I explained to her that she has a low cardiac risk for possible acute coronary syndromeheart score is 1. She has no other risk factors for PE and coupled with D Dimer, low suspicion for PE Her chest x-ray did not show any widened mediastinum and she has low risk for aortic dissection. We discussed her use of nicotine. Possible that some of her symptoms are aggravated as she just had recently increased the amount of nicotine that she is using her vape. She then stopped it completely has not had any since the . Just prior to discharge the patient had an abnormal telemetry reading. There looks to be some right bundle branch on one lead but not consistent with another. An EKG was obtained. The patient states that she was feeling well. She has no current chest pain. EKG shows a rate of 75. She has no STEMI. She has no bundle branch block. I reviewed the EKG with Dr. Hampton. We talked about her presentation here in the emergency department. We went and rounded on her together. I had offered her evaluation with mental health in the morning but she had initially declined it. However now she would like to see them. We will continue to monitor until they arrive. 08/20/20 07:48 Patient resting. Consult placed. Will turn patient care over to nurse anuradha carbajal. She will await psychiatric evaluation and disposition the patient. (TERESA GOODE) - Vital Signs Vital signs: Temp Pulse Resp BP Pulse Ox 98.5 F 84 18 122/67 99 08/20/20 14:14 08/20/20 14:14 08/20/20 14:14 08/20/20 14:14 08/20/20 14:14 Discharge - Discharge Clinical Impression: Anxiety, Nicotine dependence due to vaping non-tobacco product, Caffeine dependence, History of trauma Condition: Stable Disposition: HOME, SELF-CARE Instructions: Anxiety ([facility]) Additional Instructions: You have been evaluated by both medical and behavioral health teams for anxiety, possible nicotine and caffeine withdrawal, and history of trauma. You have been deemed appropriate for discharge. While in the emergency department you received the following services: Medical screening and assessment, nursing services, dietary services, pharmacological services, one-on-one counseling and/or psychotherapy, environmental services, and continuous observation by a patient manager environmental health and safety. Medication have been adjusted and are as follows: Discontinue home Xanax Added Effexor 37.5MG daily for trauma/depression/increase energy and focus Added Buspar 5MG twice a day for anxiety/calming effect/depression/sleep You should take these medications as prescribed and follow up with Primary Care Physician Dr. Espinoza or your choice of psychiatrist (resource list provided with emphasis on [facility] for medication management). Anxiety (very often a trauma response, also a symptoms of both nicotine and caffeine withdrawal) The physician feels that some of your health problems are being caused by anxiety. Anxiety affects your health in many ways. Anxiety alone can cause palpitations, sweats, chest pains, abdominal pains, shortness of breath, and headaches. It contributes to ulcer disease, high blood pressure, irritable bowel syndrome, and has been shown to cause flare-ups of many other diseases. Anxiety is not a simple disorder to treat. If the anxiety is due to recent life stresses, you may simply need time to "work through" the changes. If the anxiety is due to an underlying unhappiness with yourself or due to psychiatric disturbance, professional help will be needed. Your physician can refer you for further help if needed. Anti-anxiety medication is occasionally given if the stress is acute or if you are having trouble sleeping. Chronic or frequent use of these medications is not a good idea because the body becomes reliant on it, preventing you from dealing with life's normal stresses. Follow-Up Plan: You should take the above medication as directed. You have been provided resources for therapy ( Counseling) and medication management ([facility]) for ongoing services and treatment. You have also been provided both local mobile crisis numbers. You should contact both agencies today after discharge to arrange appointments. If your symptoms persist or worsen contact your physician immediately, utilize mobile crisis or return to the emergency department. Prescriptions: Buspirone HCl [Buspar 10 mg Tablet] 5 mg PO BID #15 tablet Venlafaxine HCl ER [Effexor Xr 37.5 mg Cap.sr] 37.5 mg PO DAILY #15 cap.sr.24h Forms: Return to Work Referrals: MAYTE JEAN BAPTISTE DO [Primary Care Provider] - Follow up tomorrow [facility] [Outside] - Follow up as needed [facility] [Outside] - Follow up as needed [facility] [Provider Group] - Follow up as needed (Therapy) [facility] [Outside] - Follow up as needed (Medication Management)
--- NOTE | 2020-08-20 06:39 | ER Document Report ---
Doctor's Note Notes: 08/20/20 06:36 This is a 30-year-old female was asked see along with midlevel provider. Basically this young woman has made multiple recent ED visits for chest pain and anxiety. She has been worked up extensively at each of the 3 visits. She has a heart score of 1. She has no obvious risk factors for thromboembolic disease. She has had multiple sets of troponins drawn and 2- D-dimers previously with multiple normal EKGs. His primary care provider is been giving her Xanax for anxiety. I reviewed the patient's chart and briefly examined her at bedside. She is quite sedated now because she was given some lorazepam orally earlier in the visit. We discussed generalized anxiety disorder and possible panic attacks. They do not appear to be any substance abuse issues and she is not suicidal or homicidal. She denies any hallucinations auditory or visual. She was given the option of obtaining psychiatry consultation while in the emergency department. She is agreeable to this and anticipate she will be referred to an outpatient mental health provider.
--- NOTE | 2020-08-20 07:27 | EKG REPORT ---
SEVERITY:- NORMAL ECG - SINUS RHYTHM : Confirmed by: Scott Kincaid MD 20-Aug-2020 07:27:19
[2020-08-20 08:54] LABS: URINE AMPHETAMINES SCREEN NEGATIVE; URINE BARBITURATES SCREEN NEGATIVE; URINE BENZODIAZEPINES SCREEN NEGATIVE; URINE COCAINE SCREEN NEGATIVE; URINE MARIJUANA (THC) SCREEN NEGATIVE; URINE METHADONE SCREEN NEGATIVE; URINE PHENCYCLIDINE SCREEN NEGATIVE
[2020-08-20 14:15] VITALS: BP 122/67
--- NOTE | 2020-08-20 14:54 | ER Document Report ---
Doctor's Note Notes: Patient reevaluated at this time. Mental health has cleared her. They have given medication recommendations as well as resources. Patient comfortable with this plan. She will be discharged home at this time.
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
== END 2020-08-20 14:57 | disposition home or self-care (01) ==
LOC: ER 22:54
DX: F41.9 Anxiety disorder, unspecified (principal); R07.89 Other chest pain; R53.1 Weakness; R06.02 Shortness of breath; F15.29 Other stimulant dependence with unspecified stimulant-induced disorder; R20.0 Anesthesia of skin; F17.290 Nicotine dependence, other tobacco product, uncomplicated
CPT/HCPCS: 80307; 93005; 93010; 99285

== ENCOUNTER 2020-08-21 20:20 | Emergency (ER) | payer BC ==
--- NOTE | 2020-08-21 20:46 | ER Document Report ---
ED Medical Screen (RME) - General Chief Complaint: Anxiety Stated Complaint: ANXIETY ATTACK Time Seen by Provider: 08/21/20 20:40 Primary Care Provider: MAYTE JEAN BAPTISTE DO [Primary Care Provider] - Follow up as needed Mode of Arrival: Medic Information source: Patient Notes: Patient presents reporting chest pain, rapid breathing and a numbness sensation to her body. Patient states she is had the symptoms off and on for the past 3 days. Patient states that she was treated for anxiety depression and has been to the ER multiple times this week for similar symptoms. Patient feels like her symptoms worsen which prompted her visit this evening. Patient reports recently starting Effexor and BuSpar in addition to her Xanax. I have greeted and performed a rapid initial assessment of this patient. A comprehensive ED assessment and evaluation of the patient, analysis of test results and completion of the medical decision making process will be conducted by additional ED providers. TRAVEL OUTSIDE OF THE [place] IN LAST 30 DAYS: No - Related Data Allergies/Adverse Reactions: No Known Allergies Allergy (Verified 06/06/20 10:07) Past Medical History Renal/ Medical History: Denies: Hx Peritoneal Dialysis Psychiatric Medical History: Reports: Hx Anxiety, Hx Depression Past Surgical History: Reports: Hx Section, Hx Oral Surgery - wisdom teeth - Immunizations Immunizations up to date: Yes Physical Exam - Respiratory Respiratory status: No respiratory distress Breath sounds: Normal - Cardiovascular Rhythm: Regular. No: Tachycardia Heart sounds: S1 appreciated, S2 appreciated Doctor's Discharge - Discharge Referrals: MAYTE JEAN BAPTISTE DO [Primary Care Provider] - Follow up as needed
[2020-08-21 21:42] LABS: ABSOLUTE BASOPHILS # (AUTO) 0.1 10^3/uL (0.0-0.2); ABSOLUTE EOSINOPHILS # (AUTO) 0.1 10^3/uL (0.0-0.6); ABSOLUTE LYMPHOCYTES (AUTO) 2.1 10^3/uL (0.5-4.7); ABSOLUTE MONOCYTES (AUTO) 0.7 10^3/uL (0.1-1.4); ABSOLUTE NEUT (AUTO) 10.6 10^3/uL (1.7-8.2); BASOPHILS % (AUTO) 0.6 % (0-2); EOSINOPHILS % (AUTO) 0.5 % (0-6); HEMATOCRIT 33.7 % (36.0-47.0); HEMOGLOBIN 11.6 g/dL (12.0-15.5); LYMPHOCYTES % (AUTO) 15.3 % (13-45); MEAN CORPUSCULAR HEMOGLOBIN 27.1 pg (27.0-33.4); MEAN CORPUSCULAR HGB CONC 34.4 g/dL (32.0-36.0); MEAN CORPUSCULAR VOLUME 79 fl (80-97); MONOCYTES % (AUTO) 4.9 % (3-13); PLATELET COUNT 264 10^3/uL (150-450); RED BLOOD COUNT 4.27 10^6/uL (3.72-5.28); RED CELL DISTRIBUTION WIDTH 13.9 % (11.5-14.0); SEGMENTED NEUTROPHILS % (AUTO) 78.7 % (42-78); TOTAL CELLS COUNTED % (AUTO) 100 %; WHITE BLOOD COUNT 13.4 10^3/uL (4.0-10.5)
[2020-08-21 21:51] LABS: APPEARANCE,URINE SLIGHTLY-CLOUDY; BILIRUBIN,URINE NEGATIVE (NEGATIVE); COLOR,URINE YELLOW; GLUCOSE, URINE NEGATIVE (NEGATIVE); KETONES,URINE TRACE mg/dL (NEGATIVE); LEUKOCYTE ESTERASE,URINE SMALL (NEGATIVE); NITRITE,URINE NEGATIVE (NEGATIVE); PROTEIN,URINE 30 mg/dL (NEGATIVE); URINE SPECIFIC GRAVITY 1.028; UROBILINOGEN,URINE NEGATIVE mg/dL (<2.0)
--- NOTE | 2020-08-21 21:55 | RADIOLOGY REPORT (SQ) ---
CHEST X-RAY 1 VIEW on 08/21/2020 at 9:21 PM CLINICAL INDICATION: Chest pain COMPARISON: 08/18/2020 FINDINGS: The lungs are clear. Cardiac, hilar and mediastinal contours are within normal limits. Pulmonary vascularity is within normal limits. No bony abnormality is noted. IMPRESSION: No active disease.
[2020-08-21 21:58] LABS: ALBUMIN 4.8 g/dL (3.5-5.0); ALKALINE PHOSPHATASE 51 U/L (38-126); ANION GAP 12 (5-19); ASPARTATE AMINO TRANSFERASE 20 U/L (14-36); BILIRUBIN,DIRECT 0.3 mg/dL (0.0-0.4); BILIRUBIN,TOTAL 0.7 mg/dL (0.2-1.3); BLOOD UREA NITROGEN 12 mg/dL (7-20); CALCIUM 9.8 mg/dL (8.4-10.2); CARBON DIOXIDE 24 mmol/L (22-30); CHLORIDE 104 mmol/L (98-107); GLUCOSE 102 mg/dL (75-110); NEONATAL BILIRUBIN RESULT 0.4 mg/dL (0.1-1.1); POTASSIUM 4.1 mmol/L (3.6-5.0); TOTAL PROTEIN 8.1 g/dL (6.3-8.2)
[2020-08-21 22:07] LABS: URINE AMPHETAMINES SCREEN NEGATIVE; URINE BARBITURATES SCREEN NEGATIVE; URINE COCAINE SCREEN NEGATIVE; URINE MARIJUANA (THC) SCREEN NEGATIVE; URINE METHADONE SCREEN NEGATIVE; URINE PHENCYCLIDINE SCREEN NEGATIVE
[2020-08-21 22:09] LABS: URINE BENZODIAZEPINES SCREEN UNCONFIRMED POSITIVE
--- NOTE | 2020-08-21 22:49 | EKG REPORT ---
SEVERITY:- NORMAL ECG - SINUS RHYTHM : Confirmed by: Scott Kincaid MD 21-Aug-2020 22:48:50
[2020-08-22] MEDS ORDERED: LORAZEPAM 1 MG TABLET PO ONE (04:31)
--- NOTE | 2020-08-22 05:08 | ER Document Report ---
ED General - General Chief Complaint: Anxiety Stated Complaint: ANXIETY ATTACK Time Seen by Provider: 08/21/20 20:40 Primary Care Provider: MAYTE JEAN BAPTISTE DO [Primary Care Provider] - Follow up as needed Mode of Arrival: Medic TRAVEL OUTSIDE OF THE [place] IN LAST 30 DAYS: No - HPI Context: This is a 30-year-old female presenting with chief complaint of numbness in all of her extremities and a sensation that her heart is going to stop beating. This is the third visit to the ED for this patient and 3 days. Patient was seen and evaluated by behavioral health during over prior visits and was started on Effexor and BuSpar. Patient states the episodes she is having can come on at any time. She denies any exacerbating factors or alleviating factors. Patient states that she is not under any exceptional amount of stress. Associated symptoms: Other - See HPI Exacerbated by: Other - See HPI Relieved by: Other - See HPI - Related Data Allergies/Adverse Reactions: No Known Allergies Allergy (Verified 06/06/20 10:07) Past Medical History - General Information source: Patient - Social History Smoking Status: Unknown if Ever Smoked Chew tobacco use (# tins/day): No Frequency of alcohol use: None Drug Abuse: None Family History: Reviewed & Not Pertinent Patient has homicidal ideation: No Renal/ Medical History: Denies: Hx Peritoneal Dialysis Psychiatric Medical History: Reports: Hx Anxiety, Hx Depression Past Surgical History: Reports: Hx Section, Hx Oral Surgery - wisdom teeth - Immunizations Immunizations up to date: Yes Review of Systems - Review of Systems Constitutional: No symptoms reported EENT: No symptoms reported Cardiovascular: No symptoms reported Respiratory: No symptoms reported Gastrointestinal: No symptoms reported Genitourinary: No symptoms reported Female Genitourinary: No symptoms reported Musculoskeletal: No symptoms reported Skin: No symptoms reported Hematologic/Lymphatic: No symptoms reported Neurological/Psychological: Numbness. denies: Suicidal ideation -: Yes All other systems reviewed and negative Physical Exam - Vital signs Vitals: Temp 97.4 F 08/21/20 20:46 - Notes Notes: CONSTITUTIONAL [Vital signs reviewed, Patient appears comfortable, Alert and oriented X 3, Normal stature.] HEAD [Atraumatic, Normocephalic.] EYES [Eyes are normal to inspection, No discharge from eyes, Extraocular muscles intact, Sclera are normal, Conjunctiva are normal.] NECK [Normal ROM, No jugular venous distention, No meningeal signs, no carotid bruit.] RESPIRATORY CHEST [Chest is nontender, Breath sounds normal, No respiratory distress.] CARDIOVASCULAR [RRR, No murmurs, Normal S1 S2, No rub, No gallop.] ABDOMEN [Abdomen is nontender, No pulsatile masses, No other masses, Bowel sounds normal, No distension, No peritoneal signs, No hernias.] BACK [There is no CVA Tenderness, There is no tenderness to palpation, Normal inspection.] UPPER EXTREMITY [Inspection normal, No cyanosis, No clubbing, No edema, 2+ radial pulses.] LOWER EXTREMITY [Inspection normal, No cyanosis, No clubbing, No edema, No calf tenderness, 2+ femoral pulses.] NEURO [No focal motor deficits, No focal sensory deficits, Speech normal.] SKIN [Skin is warm, Skin is dry, Skin is normal color.] LYMPHATIC [No adenopathy in neck.] PSYCHIATRIC [Normal affect. ] Course - Re-evaluation Re-evalutation: 08/22/20 05:26 Results of ED MSE discussed with patient. All questions were answered prior to discharge. Emergency signs and symptoms, reasons to return to the emergency department discussed with patient. - Vital Signs Vital signs: Temp Pulse Resp BP Pulse Ox 98.2 F 98 18 125/86 H 100 08/22/20 01:46 08/22/20 01:46 08/22/20 01:46 08/22/20 01:46 08/22/20 01:46 - Laboratory Result Diagrams: 08/21/20 21:14 08/21/20 21:14 Laboratory results interpreted by me: 08/21/20 08/21/20 21:14 21:14 WBC 13.4 H Hgb 11.6 L Hct 33.7 L MCV 79 L Absolute Neuts (auto) 10.6 H Seg Neutrophils % 78.7 H Urine Protein 30 H Urine Ketones TRACE H Ur Leukocyte Esterase SMALL H - EKG Interpretation by Me Additional EKG results interpreted by me: 08/22/20 05:17 EKG obtained on 08/21/2020 at 2102 hrs. was interpreted by this MD. Findings: Normal sinus rhythm, rate 83, normal axis, NJ interval within normal limits, P waves proceed QRS complexes, QRS complexes appear narrow, QTC is 456, there are no obvious patterns of ST segment elevation or depression present to suggest acute myocardial ischemia or infarction. When compared to prior EKG from 08/20/2020 no significant change in morphology is noted. Impression: Normal sinus rhythm with nonspecific ST segments. Discharge - Discharge Clinical Impression: Paresthesias Condition: Stable Disposition: HOME, SELF-CARE Additional Instructions: Return to the Emergency Department without delay if any worse. HOME CARE INSTRUCTIONS & INFORMATION: Thank you for choosing us for your medical needs. We hope you're satisfied with the care you received. After you leave, you must properly care for your problem and, at the same time, observe its progress. Any condition can change. Some illnesses can change rapidly over hours or days. If your condition worsens, return to the Emergency Department or see your physician promptly. ABOUT YOUR X-RAYS AND EKG'S: If you had an EKG or X-rays taken, they have been read by the Emergency Physician. The X-rays and EKG's will also be read by a Radiologist or Carbon Furnace Operator Helper within 24 hours. If discrepancies are noted, you will be notified by telephone. Please be certain the ED has a correct telephone number & address where you can be reached. Also, realize that some fractures or abnormalities do not show up on initial X-rays. If your symptoms continue, see your physician. ABOUT YOUR LABORATORY TEST: If you had laboratory tests, the results have been reviewed by the Emergency Physician. Some test results (for example cultures) may not be available for several days. You will be contacted if any test result shows you need additional treatment. Please be certain the ED has a correct telephone number and address where you can be reached. ABOUT YOUR MEDICATIONS: You will receive instructions on how to take your medicine on the prescription label you receive. Additional information may be provided by the Pharmacy. If you have questions afterwards, call the ED for clarification or further instructions. Some prescribed medications may cause drowsiness. Do not perform tasks such as driving a car or operating machinery without consulting your Pharmacist. If you feel you need a refill of pain medication, your condition will need re-evaluation. Please do not call for a refill of any medication. ABOUT YOUR SIGNATURE: Signature of this document acknowledges to followin. Understanding that you received emergency treatment and that you may be released before al medical problems are known or treated. Please be certain the ED has a correct phone number & address where you can be reached. 2. Acknowledgement that you will arrange for follow-up care as recommended. 3. Authorization for the Emergency Physician to provide information to your follow-up Physician in order to maximize your care. AT ANY TIME, IF YOUR SYMPTOMS CHANGE SIGNIFICANTLY OR WORSEN OR YOU DEVELOP NEW SYMPTOMS, RETURN TO THE EMERGENCY DEPARTMENT IMMEDIATELY FOR RE-EVALUATION. OUR GOAL IS TO PROVIDE EXCELLENT MEDICAL CARE! WE HOPE THAT WE HAVE MET YOUR EXPECTATIONS DURING YOUR EMERGENCY DEPARTMENT VISIT AND THAT YOU FEEL YOU HAVE RECEIVED EXCELLENT CARE! Referrals: MAYTE JEAN BAPTISTE DO [Primary Care Provider] - Follow up as needed KADY BARBOUR MD [NO LOCAL MD] - 08/24/20 (Call office on 08/24/2020, to schedule an appointment.)
[2020-08-22 05:38] VITALS: BP 142/82
== END 2020-08-22 05:37 | disposition home or self-care (01) ==
LOC: ER 20:20
DX: R20.0 Anesthesia of skin (principal); F41.9 Anxiety disorder, unspecified
CPT/HCPCS: 36415; 71045; 80053; 80307; 81001; 83735; 84484; 84703; 85025; 93005; 93010; 99283

== ENCOUNTER → 2020-08-25 | Outpatient (CLI) | payer BC, MEDICAID ==
--- NOTE | 2020-08-25 13:51 | RADIOLOGY REPORT (SQ) ---
EXAM DESCRIPTION: MRI HEAD COMBO IMAGES COMPLETED DATE/TIME: 08/25/2020 1:40 pm REASON FOR STUDY: (R20.2)PARESTHESIA OF SKIN;(R42)DIZZINESS AND GIDDINESS G44.52 NEW DAILY PERSISTE NT HEADACHE (NDPH) R42 DIZZINESS AND GIDDINESS R20.2 PARESTHESIA OF SKIN COMPARISON: CT dated 09/21/2018. TECHNIQUE: Multiplanar imaging includes noncontrasted T1, T2, FLAIR, diffusion with ADC map and post gadolinium contrast T1 sequences. Images stored on PACS. CONTRAST TYPE AND DOSE: 15 mL Prohance. RENAL FUNCTION: Not indicated. ACR Type II contrast agent associated with few, if any, unconfounded cases of NSF LIMITATIONS: None. FINDINGS: ANATOMY: No anomalies. Normal vascular flow voids. Pituitary fossa normal. CSF SPACES: Normal in size and contour. No hemorrhage. CEREBRUM: Sulci and gyri normal in size and contour. Normal white matter signal on FLAIR imaging. No evidence of hemorrhage, mass, or extraaxial fluid collection. No abnormal enhancement post contrast. POSTERIOR FOSSA: No signal alteration. No hemorrhage. No edema, masses, or mass effect. Internal jaden tory canals, cerebellopontine angles, mastoids normal. No enhancing lesions. No abnormal enhancement post contrast. DIFFUSION IMAGING: Negative for acute or subacute infarction. ORBITS: No masses. Globes normal. PARANASAL SINUSES: No fluid levels. Mucosa normal. OTHER: No other significant finding. IMPRESSION: NORMAL MRI OF THE BRAIN WITHOUT AND WITH INTRAVENOUS GADOLINIUM CONTRAST. EVIDENCE OF ACUTE STROKE: NO. TECHNICAL DOCUMENTATION: JOB ID: [id number] 2010 [employer]- All Rights Reserved Reading location - IP/workstation name: [email or web address]
== END ==
LOC: RAD 12:41
PROVIDERS: ATTEND Nurse Practitioner Family
DX: G44.52 New daily persistent headache (NDPH) (principal); R42 Dizziness and giddiness; R20.2 Paresthesia of skin
CPT/HCPCS: 70553; A9576

== ENCOUNTER 2020-09-06 00:10 | Emergency (ER) | payer BC ==
--- NOTE | 2020-09-06 01:36 | ER Document Report ---
ED General - General Chief Complaint: Arrhythmia Stated Complaint: HEART RATE FEELS SLOW LIGHTHEADED Time Seen by Provider: 09/06/20 01:22 Primary Care Provider: CHRISTOPHER GONSALES MD [ACTIVE STAFF] - Follow up in 3-5 days Notes: Patient is a 30-year-old female that comes emergency department for chief complaint of palpitations. She states she had an episode where she was just about to fall asleep when her heart started feeling like it "it was doing back flips". She states that her heartbeat felt very irregular and she felt short of breath and a vague tightness in her chest. She states that this lasted for about 2 minutes and then resolved. She states that she has actually felt the same sensation many times in the past but she became concerned because she felt like this lasted a lot longer than usual. She denies dizziness, passing out, abdominal pain, vomiting, fever, or any current symptoms. She states she was just started on propanolol and hydroxyzine for anxiety/mood, she states she has on no other medications at this time, she states she has Mirena in place. She states she was referred to cardiology by her primary care already for palpitations but she is still awaiting this. TRAVEL OUTSIDE OF THE [place] IN LAST 30 DAYS: No - Related Data Allergies/Adverse Reactions: No Known Allergies Allergy (Verified 06/06/20 10:07) Home Medications: propanolol, hydroxyzine, myrina Past Medical History - General Information source: Patient - Social History Smoking Status: Former Smoker - currently vapes Frequency of alcohol use: None Drug Abuse: None Lives with: Family Family History: Reviewed & Not Pertinent Patient has homicidal ideation: No - Past Medical History Cardiac Medical History: Reports: Hx Hypertension Renal/ Medical History: Denies: Hx Peritoneal Dialysis Psychiatric Medical History: Reports: Hx Anxiety, Hx Depression Past Surgical History: Reports: Hx Section, Hx Oral Surgery - wisdom teeth - Immunizations Immunizations up to date: Yes Review of Systems - Review of Systems Constitutional: No symptoms reported EENT: No symptoms reported Cardiovascular: See HPI Respiratory: See HPI Gastrointestinal: No symptoms reported Genitourinary: No symptoms reported Female Genitourinary: No symptoms reported Musculoskeletal: No symptoms reported Skin: No symptoms reported Hematologic/Lymphatic: No symptoms reported Neurological/Psychological: See HPI Physical Exam - Vital signs Vitals: Temp Pulse Resp BP Pulse Ox 98.2 F 80 16 129/69 H 99 09/06/20 00:15 09/06/20 00:15 09/06/20 00:15 09/06/20 00:15 09/06/20 00:15 - Notes Notes: GENERAL: Alert, interacts well. No acute distress. Smiling, talkative, well- appearing HEAD: Normocephalic, atraumatic. EYES: Pupils equal, round, and reactive to light. Extraocular movements intact. ENT: Oral mucosa moist, tongue midline. Oropharynx unremarkable. Airway patent. NECK: Full range of motion. Supple. Trachea midline. No lymphadenopathy. LUNGS: Clear to auscultation bilaterally, no wheezes, rales, or rhonchi. No respiratory distress. Non-tender chest wall. HEART: Regular rate and rhythm. No murmur ABDOMEN: Soft, non-tender. Non-distended. Bowel sounds present in all 4 quadrants. GENITOURINARY: Deferred EXTREMITIES: Moves all 4 extremities spontaneously. No edema, normal radial and dorsalis pedis pulses bilaterally. No cyanosis. BACK: no cervical, thoracic, lumbar midline tenderness. No saddle anesthesia, normal distal neurovascular exam. Moves all extremities in full range of motion. NEUROLOGICAL: Alert and oriented x3. Normal speech. Cranial nerves II through XII grossly intact. Strength 5/5 in all extremities. PSYCH: Normal affect, normal mood. SKIN: Warm, dry, normal turgor. No rashes or lesions noted. Course - Re-evaluation Re-evalutation: Patient is very well-appearing on exam. Vital signs unremarkable. EKG unremarkable. Monitoring in the emergency department unremarkable. CBC shows mild normocytic anemia, chemistry shows borderline glucose but otherwise unremarkable, test negative, TSH unremarkable. Chest x-ray unremarkable. Patient reports familiar palpitations to previous, she already has cardiology referral for this, she has not had any chest pain, syncope, shortness of breath, or concerning symptoms reported otherwise. Low suspicion of life-threatening arrhythmia or acute intrathoracic etiology. On reevaluation patient sleeping and easily aroused. I discussed her work-up. Patient is asking for a faster cardiology follow-up, she was referred to cardiology from here, discussed follow-up instructions, lifestyle modifications to reduce palpitations, and return precautions. Patient states appreciation and agreement. Stable and well-appearing at time of discharge. - Vital Signs Vital signs: Temp Pulse Resp BP Pulse Ox 98.2 F 80 20 118/70 100 09/06/20 00:15 09/06/20 00:15 09/06/20 03:32 09/06/20 03:33 09/06/20 03:32 - Laboratory Result Diagrams: 09/06/20 01:02 09/06/20 01:02 Laboratory results interpreted by me: 09/06/20 09/06/20 01:02 01:02 Hgb 10.9 L Hct 32.9 L MCH 26.6 L Glucose 134 H - EKG Interpretation by Me Additional EKG results interpreted by me: EKG shows sinus rhythm at a rate of 77, QTc of 453, ND interval of 180. No T wave inversions or ST segment changes in consecutive leads. Machine reads as normal. Discharge - Discharge Clinical Impression: Palpitations Condition: Stable Disposition: HOME, SELF-CARE Additional Instructions: You have been evaluated tonight for palpitations. Your evaluation and monitoring tonight do not show any concerning findings. Because of your repeated symptoms I recommend that you continue the propanolol, call the cardiology referral for close follow-up, and reduce your caffeine and nicotine intake. Return if you worsen including chest pain, difficulty breathing, passing out, or any other concerning or worsening symptoms. Referrals: CHRISTOPHER GONSALES MD [ACTIVE STAFF] - Follow up in 3-5 days
[2020-09-06 01:45] LABS: ABSOLUTE BASOPHILS # (AUTO) 0.1 10^3/uL (0.0-0.2); ABSOLUTE EOSINOPHILS # (AUTO) 0.3 10^3/uL (0.0-0.6); ABSOLUTE MONOCYTES (AUTO) 0.7 10^3/uL (0.1-1.4); ABSOLUTE NEUT (AUTO) 4.9 10^3/uL (1.7-8.2); BASOPHILS % (AUTO) 0.6 % (0-2); EOSINOPHILS % (AUTO) 3.8 % (0-6); HEMATOCRIT 32.9 % (36.0-47.0); HEMOGLOBIN 10.9 g/dL (12.0-15.5); LYMPHOCYTES % (AUTO) 34.1 % (13-45); MEAN CORPUSCULAR HEMOGLOBIN 26.6 pg (27.0-33.4); MEAN CORPUSCULAR HGB CONC 33.3 g/dL (32.0-36.0); MEAN CORPUSCULAR VOLUME 80 fl (80-97); MONOCYTES % (AUTO) 7.3 % (3-13); PLATELET COUNT 222 10^3/uL (150-450); RED BLOOD COUNT 4.11 10^6/uL (3.72-5.28); RED CELL DISTRIBUTION WIDTH 13.8 % (11.5-14.0); SEGMENTED NEUTROPHILS % (AUTO) 54.2 % (42-78); TOTAL CELLS COUNTED % (AUTO) 100 %; WHITE BLOOD COUNT 8.9 10^3/uL (4.0-10.5)
[2020-09-06 01:48] LABS: ALBUMIN 4.1 g/dL (3.5-5.0); ALKALINE PHOSPHATASE 45 U/L (38-126); ANION GAP 7 (5-19); ASPARTATE AMINO TRANSFERASE 15 U/L (14-36); BILIRUBIN,DIRECT 0.3 mg/dL (0.0-0.4); BILIRUBIN,TOTAL 0.3 mg/dL (0.2-1.3); BLOOD UREA NITROGEN 12 mg/dL (7-20); CALCIUM 9.7 mg/dL (8.4-10.2); CARBON DIOXIDE 28 mmol/L (22-30); CHLORIDE 105 mmol/L (98-107); GLUCOSE 134 mg/dL (75-110); POTASSIUM 4.6 mmol/L (3.6-5.0); TOTAL PROTEIN 6.8 g/dL (6.3-8.2)
--- NOTE | 2020-09-06 01:58 | RADIOLOGY REPORT (SQ) ---
EXAM DESCRIPTION: XR CHEST 1 VIEW COMPLETED DATE/TME: 09/06/2020 01:32 CLINICAL HISTORY: 30 years Female shortness of breath COMPARISON: 08/21/2020. FINDINGS: The cardiomediastinal silhouette appears unremarkable. No consolidating infiltrates or pleural effusions. No pneumothorax. IMPRESSION: No acute abnormality is identified.
[2020-09-06 03:37] VITALS: BP 118/70
--- NOTE | 2020-09-06 16:33 | EKG REPORT ---
SEVERITY:- NORMAL ECG - SINUS RHYTHM : Confirmed by: Angely Monroy 06-Sep-2020 16:32:48
== END 2020-09-06 03:37 | disposition home or self-care (01) ==
LOC: ER 00:10
DX: R00.2 Palpitations (principal); I10 Essential (primary) hypertension; D64.9 Anemia, unspecified; F41.9 Anxiety disorder, unspecified; R06.02 Shortness of breath; R07.89 Other chest pain; Z97.5 Presence of (intrauterine) contraceptive device; Z72.0 Tobacco use
CPT/HCPCS: 36415; 71045; 80053; 83735; 84443; 84703; 85025; 93005; 93010; 99285

== ENCOUNTER 2020-09-11 12:43 | Emergency (ER) | payer BC ==
--- NOTE | 2020-09-11 13:06 | ER Document Report ---
ED Medical Screen (RME) - General Chief Complaint: Cold Symptoms Stated Complaint: SHORTNESS OF BREATH/COUGH/CONGESTION Time Seen by Provider: 09/11/20 12:56 Primary Care Provider: MAYTE JEAN BAPTISTE DO [Primary Care Provider] - Follow up as needed Information source: Patient Notes: Patient presents complaining of chest pain and difficulty breathing off and on for the past month. Patient states she has had a cough the past 1 to 2 weeks. Patient does complain of some shortness of breath. Patient denies any nausea or vomiting. Patient denies any fever. Patient does report urinary frequency as well. Patient states that she was told she had anxiety although states that she has been taking anxiety medication and does not feel anxious at this time. Patient does not think her symptoms are related to anxiety. I have greeted and performed a rapid initial assessment of this patient. A comprehensive ED assessment and evaluation of the patient, analysis of test results and completion of the medical decision making process will be conducted by additional ED providers. TRAVEL OUTSIDE OF THE [place] IN LAST 30 DAYS: No - Related Data Allergies/Adverse Reactions: No Known Allergies Allergy (Verified 06/06/20 10:07) Past Medical History - Past Medical History Cardiac Medical History: Reports: Hx Hypertension Renal/ Medical History: Denies: Hx Peritoneal Dialysis Psychiatric Medical History: Reports: Hx Anxiety, Hx Depression Past Surgical History: Reports: Hx Section, Hx Oral Surgery - wisdom teeth - Immunizations Immunizations up to date: Yes Physical Exam - Vital signs Vitals: Temp Pulse Resp BP Pulse Ox 98.3 F 78 20 149/80 H 100 09/11/20 12:50 09/11/20 12:50 09/11/20 12:50 09/11/20 12:50 09/11/20 12:50 - Respiratory Respiratory status: No respiratory distress Chest status: Tender Breath sounds: Normal Chest palpation: Normal - Cardiovascular Rhythm: Regular Heart sounds: S1 appreciated, S2 appreciated Course - Vital Signs Vital signs: Temp Pulse Resp BP Pulse Ox 98.3 F 78 20 149/80 H 100 09/11/20 12:50 09/11/20 12:50 09/11/20 12:50 09/11/20 12:50 09/11/20 12:50 Doctor's Discharge - Discharge Referrals: MAYTE JEAN BAPTISTE DO [Primary Care Provider] - Follow up as needed
--- NOTE | 2020-09-11 13:39 | RADIOLOGY REPORT (SQ) ---
EXAM DESCRIPTION: CHEST SINGLE VIEW IMAGES COMPLETED DATE/TIME: 09/11/2020 1:31 pm REASON FOR STUDY: cp, cough COMPARISON: 09/06/2020 EXAM PARAMETERS: NUMBER OF VIEWS: One view. TECHNIQUE: Single frontal radiographic view of the chest acquired. RADIATION DOSE: NA LIMITATIONS: None. FINDINGS: LUNGS AND PLEURA: No opacities, masses or pneumothorax. No pleural effusion. MEDIASTINUM AND HILAR STRUCTURES: No masses. Contour normal. HEART AND VASCULAR STRUCTURES: Heart normal in size. Normal vasculature. BONES: No acute findings. HARDWARE: None in the chest. OTHER: No other significant finding. IMPRESSION: NO ACUTE RADIOGRAPHIC FINDING IN THE CHEST. TECHNICAL DOCUMENTATION: JOB ID: [id number] 2010 [email or web address]- All Rights Reserved Reading location - IP/workstation name: [email or web address]
--- NOTE | 2020-09-11 14:56 | ER Document Report ---
ED General - General Chief Complaint: Cold Symptoms Stated Complaint: SHORTNESS OF BREATH/COUGH/CONGESTION Time Seen by Provider: 09/11/20 12:56 Primary Care Provider: MAYTE JEAN BAPTISTE DO [Primary Care Provider] - Follow up as needed Mode of Arrival: Ambulatory Information source: Patient Notes: 30-year-old female presenting to the emergency department with a complaint of chest pressure and chest pain she complains of shortness of breath and the feeling of tightness in her chest along with episodic symptoms which have been ongoing for the past few weeks. She has a history of anxiety, has been taking her medications for anxiety, does not feel that her symptoms of chest discomfort are related to the anxiety diagnoses. She denies fever, productive cough, or dyspnea on exertion.. TRAVEL OUTSIDE OF THE [place] IN LAST 30 DAYS: No - Related Data Allergies/Adverse Reactions: No Known Allergies Allergy (Verified 09/11/20 17:17) Past Medical History - General Information source: Patient - Social History Smoking Status: Never Smoker Family History: Reviewed & Not Pertinent - Past Medical History Cardiac Medical History: Reports: Hx Hypertension Renal/ Medical History: Denies: Hx Peritoneal Dialysis Psychiatric Medical History: Reports: Hx Anxiety, Hx Depression Past Surgical History: Reports: Hx Section, Hx Oral Surgery - wisdom teeth - Immunizations Immunizations up to date: Yes Review of Systems - Review of Systems Notes: Constitutional: Negative for fever. HENT: Negative for sore throat. Eyes: Negative for visual changes. Cardiovascular: + Chest pain, + pressure, Respiratory: + Shortness of breath. Gastrointestinal: Negative for abdominal pain, vomiting or diarrhea. Genitourinary: Negative for dysuria. Musculoskeletal: Negative for back pain. Skin: Negative for rash. Neurological: Negative for headaches, weakness or numbness. 10 point ROS negative except as marked above and in HPI. Physical Exam - Vital signs Vitals: Temp Pulse Resp BP Pulse Ox 98.3 F 78 20 149/80 H 100 09/11/20 12:50 09/11/20 12:50 09/11/20 12:50 09/11/20 12:50 09/11/20 12:50 - Notes Notes: VITAL SIGNS: Within normal limits. GENERAL: No acute distress, non-toxic appearance. HEAD: Normal with no signs of head trauma. EYES: PERRLA, EOMI, conjunctiva normal, no discharge. EARS: Hearing grossly intact. NOSE: Normal. THROAT: Oropharynx is normal. NECK: Normal range of motion, no tenderness, supple, no lymphadenopathy, No adenopathy, no JVD. CHEST: Clear breath sounds bilaterally. No wheezes, rales, or rhonchi. CARDIAC: Regular rate and rhythm. S1 and S2, without murmurs, gallops, or rubs. VASCULAR: No Edema. Peripheral pulses normal and equal in all extremities. ABDOMEN: Normal and soft with no tenderness, no masses or pulsatile masses. GASTROINTESTINAL: Bowel sounds normal GENITOURINARY: Normal, No tenderness LYMPATHTIC: No lymphadenopathy noted. MUSCULOSKELETAL: Good range of motion of all major joints. Extremities without clubbing, cyanosis or edema. NEUROLOGICAL: Alert and oriented x 3. No focal sensory or strength deficits. Speech normal. Follows commands appropriately. PSYCHIATRIC: Normal Affect, judgement and mood. Course - Re-evaluation Re-evalutation: 09/11/20 18:03 Patient was seen and evaluated in the emergency department for a question of a cardiac etiology for her chest discomfort. Chest x-ray, labs and carboxy hemoglobin were all negative. I have a reviewed the findings with the patient and explained that her symptoms may be related to the anxiety and stress she has had and could improve with Tylenol or ibuprofen if she were. She has an appointment with psychiatry as well as cardiology I encouraged her to keep those appointments and to not worry given substantial evaluation which is negative. Patient acknowledges understanding of the discussion and states that she does plan to keep the appointments. - Vital Signs Vital signs: Temp Pulse Resp BP Pulse Ox 98.6 F 79 16 129/70 H 100 09/11/20 18:39 09/11/20 18:39 09/11/20 18:39 09/11/20 18:39 09/11/20 18:39 - Laboratory Result Diagrams: 09/11/20 15:04 09/11/20 15:04 Laboratory results interpreted by me: 09/11/20 09/11/20 09/11/20 15:04 15:04 15:10 MCH 26.9 L Glucose 112 H Calcium 10.5 H Ur Leukocyte Esterase TRACE H I have reviewed laboratory data and used this information for the treatment decisions regarding the patient. - Diagnostic Test Radiology reviewed: Image reviewed, Reports reviewed Radiology results interpreted by me: 09/11/20 18:05 Chest X-Ray 09/11/20 13:05 IMPRESSION: NO ACUTE RADIOGRAPHIC FINDING IN THE CHEST. - EKG Interpretation by Me Rate: Normal - EKG interpreted by Dr. Reno: Normal sinus rhythm, rate 79, MT interval 196 ms, QT interval 332 ms, normal axis,no acute ST or T wave abnormalities, no ischemic findings, when compared to EKG dated 09/06/2020, there is no interval changes noted. Interpretation: Normal electrocardiogram Discharge - Discharge Clinical Impression: Chest pressure, Shortness of breath Condition: Good Disposition: HOME, SELF-CARE Instructions: Chest Pain of Unclear Cause ([facility]) Additional Instructions: You were seen in the emergency department today with nonspecific chest pressure and chest discomfort. The evaluation is negative for clear cardiac etiology or pulmonary etiology for your symptoms. It is likely that this is musculoskeletal and the use of pain medication like Tylenol or ibuprofen might help. Please keep the appointments with psychiatry and cardiology. You may return to the hospital if your symptoms are worsening or if you have other concerns. HOME CARE INSTRUCTIONS & INFORMATION: Thank you for choosing us for your medical needs. We hope you're satisfied with the care you received. After you leave, you must properly care for your problem and, at the same time, observe its progress. Any condition can change. Some illnesses can change rapidly over hours or days. If your condition worsens, return to the Emergency Department or see your physician promptly. ABOUT YOUR X-RAYS AND EKG'S: If you had an EKG or X-rays taken, they have been read by the Emergency Physician. The X-rays and EKG's will also be read by a Rad iologist or Kettle Worker within 24 hours. If discrepancies are noted, you will be notified by telephone. Please be certain the ED has a correct telephone number & address where you can be reached. Also, realize that some fractures or abnormalities do not show up on initial X-rays. If your symptoms continue, see your physician. ABOUT YOUR LABORATORY TEST: If you had laboratory tests, the results have been reviewed by the Emergency Physician. Some test results (for example cultures) may not be available for several days. You will be contacted if any test result shows you need additional treatment. Please be certain the ED has a correct telephone number and address where you can be reached. ABOUT YOUR MEDICATIONS: You will receive instructions on how to take your medicine on the prescription label you receive. Additional information may be provided by the Pharmacy. If you have questions afterwards, call the ED for clarification or further instructions. Some prescribed medications may cause drowsiness. Do not perform tasks such as driving a car or operating machinery without consulting your Pharmacist. If you feel you need a refill of pain medication, your condition will need re-evaluation. Please do not call for a refill of any medication. ABOUT YOUR SIGNATURE: Signature of this document acknowledges to followin. Understanding that you received emergency treatment and that you may be released before al medical problems are known or treated. Please be certain the ED has a correct phone number & address where you can be reached. 2. Acknowledgement that you will arrange for follow-up care as recommended. 3. Authorization for the Emergency Physician to provide information to your follow-up Physician in order to maximize your care. AT ANY TIME, IF YOUR SYMPTOMS CHANGE SIGNIFICANTLY OR WORSEN OR YOU DEVELOP NEW SYMPTOMS, RETURN TO THE EMERGENCY DEPARTMENT IMMEDIATELY FOR RE-EVALUATION. OUR GOAL IS TO PROVIDE EXCELLENT MEDICAL CARE! WE HOPE THAT WE HAVE MET YOUR EXPECTATIONS DURING YOUR EMERGENCY DEPARTMENT VISIT AND THAT YOU FEEL YOU HAVE RECEIVED EXCELLENT CARE! Referrals: MAYTE JEAN BAPTISTE, [Primary Care Provider] - Follow up as needed
[2020-09-11 15:30] LABS: ABSOLUTE BASOPHILS # (AUTO) 0.1 10^3/uL (0.0-0.2); ABSOLUTE EOSINOPHILS # (AUTO) 0.3 10^3/uL (0.0-0.6); ABSOLUTE LYMPHOCYTES (AUTO) 3.1 10^3/uL (0.5-4.7); ABSOLUTE MONOCYTES (AUTO) 0.7 10^3/uL (0.1-1.4); ABSOLUTE NEUT (AUTO) 6.3 10^3/uL (1.7-8.2); BASOPHILS % (AUTO) 0.5 % (0-2); EOSINOPHILS % (AUTO) 2.8 % (0-6); HEMATOCRIT 36.2 % (36.0-47.0); HEMOGLOBIN 12.3 g/dL (12.0-15.5); LYMPHOCYTES % (AUTO) 29.7 % (13-45); MEAN CORPUSCULAR HEMOGLOBIN 26.9 pg (27.0-33.4); MEAN CORPUSCULAR HGB CONC 33.8 g/dL (32.0-36.0); MEAN CORPUSCULAR VOLUME 80 fl (80-97); MONOCYTES % (AUTO) 6.4 % (3-13); PLATELET COUNT 281 10^3/uL (150-450); RED BLOOD COUNT 4.55 10^6/uL (3.72-5.28); RED CELL DISTRIBUTION WIDTH 13.9 % (11.5-14.0); SEGMENTED NEUTROPHILS % (AUTO) 60.6 % (42-78); TOTAL CELLS COUNTED % (AUTO) 100 %; WHITE BLOOD COUNT 10.3 10^3/uL (4.0-10.5)
[2020-09-11 15:36] LABS: APPEARANCE,URINE CLEAR; BILIRUBIN,URINE NEGATIVE (NEGATIVE); COLOR,URINE YELLOW; GLUCOSE, URINE NEGATIVE (NEGATIVE); KETONES,URINE NEGATIVE (NEGATIVE); LEUKOCYTE ESTERASE,URINE TRACE (NEGATIVE); NITRITE,URINE NEGATIVE (NEGATIVE); PROTEIN,URINE NEGATIVE (NEGATIVE); UROBILINOGEN,URINE NEGATIVE mg/dL (<2.0)
[2020-09-11 15:40] LABS: ALBUMIN 4.9 g/dL (3.5-5.0); ALKALINE PHOSPHATASE 50 U/L (38-126); ANION GAP 11 (5-19); ASPARTATE AMINO TRANSFERASE 19 U/L (14-36); BILIRUBIN,DIRECT 0.2 mg/dL (0.0-0.4); BILIRUBIN,TOTAL 0.3 mg/dL (0.2-1.3); BLOOD UREA NITROGEN 12 mg/dL (7-20); CALCIUM 10.5 mg/dL (8.4-10.2); CARBON DIOXIDE 26 mmol/L (22-30); CHLORIDE 103 mmol/L (98-107); GLUCOSE 112 mg/dL (75-110); POTASSIUM 4.3 mmol/L (3.6-5.0); TOTAL PROTEIN 7.9 g/dL (6.3-8.2)
--- NOTE | 2020-09-11 16:11 | EKG REPORT ---
SEVERITY:- NORMAL ECG - SINUS RHYTHM : Confirmed by: Abelino Dickey MD 11-Sep-2020 16:11:01
[2020-09-11 18:40] VITALS: BP 129/70
== END 2020-09-11 18:40 | disposition home or self-care (01) ==
LOC: ER 12:43
DX: R07.9 Chest pain, unspecified (principal); R06.02 Shortness of breath; R05 Cough; R09.81 Nasal congestion; F41.9 Anxiety disorder, unspecified; I10 Essential (primary) hypertension
CPT/HCPCS: 36415; 71045; 80053; 81001; 82375; 84484; 84703; 85025; 93005; 93010; 99285

== ENCOUNTER 2020-10-04 21:20 | Emergency (ER) | payer BC ==
--- NOTE | 2020-10-04 21:55 | ER Document Report ---
ED Medical Screen (RME) - General Chief Complaint: Palpitations Stated Complaint: REPORTS RAPID HEART RATE Time Seen by Provider: 10/04/20 21:46 Primary Care Provider: MAYTE JEAN BAPTISTE DO [Primary Care Provider] - Follow up as needed Mode of Arrival: Ambulatory Information source: Patient Notes: 30-year-old female presents to ED for complaint of palpitations that started about 9 PM. She stated they lasted about 10 minutes and her body felt like it was kind of had [id number] all over. She states her heart felt like it was racing. She states she is wearing a Holter monitor and she did push the button when the palpitations started. She states she told her dad that it was happening again and he brought her to the ED. She states the chest pain started on the right side of her chest through to her back during the latter part of her palpitations. She states now chest pain is on the left side of her chest. She states she is seeing a rn resource nurse and neurologist and a psychiatrist because she has been told that it is cardiac pain, panic attacks, and it neurological. She states she is wearing a Holter monitor at this time. Patient is alert oriented respirations regular nonlabored speaking in full sentences. I have greeted and performed a rapid initial assessment of this patient. A comprehensive ED assessment and evaluation of the patient, analysis of test results and completion of medical decision making process will be conducted by an additional ED providers. TRAVEL OUTSIDE OF THE [place] IN LAST 30 DAYS: No - Related Data Allergies/Adverse Reactions: No Known Allergies Allergy (Verified 09/11/20 17:17) Past Medical History - Past Medical History Cardiac Medical History: Reports: Hx Hypertension Renal/ Medical History: Denies: Hx Peritoneal Dialysis Psychiatric Medical History: Reports: Hx Anxiety, Hx Depression Past Surgical History: Reports: Hx Section, Hx Oral Surgery - wisdom teeth - Immunizations Immunizations up to date: Yes Physical Exam - Vital signs Vitals: Temp Pulse Resp BP Pulse Ox 98.2 F 95 17 155/80 H 99 10/04/20 21:39 10/04/20 21:39 10/04/20 21:39 10/04/20 21:39 10/04/20 21:39 Course - Vital Signs Vital signs: Temp Pulse Resp BP Pulse Ox 98.2 F 95 17 155/80 H 99 10/04/20 21:39 10/04/20 21:39 10/04/20 21:39 10/04/20 21:39 10/04/20 21:39 Doctor's Discharge - Discharge Referrals: MAYTE JEAN BAPTISTE DO [Primary Care Provider] - Follow up as needed
--- NOTE | 2020-10-04 22:43 | RADIOLOGY REPORT (SQ) ---
XR CHEST 2 VIEWS CLINICAL STATEMENT: Pain chest COMPARISON: 09/11/2020 FINDINGS: Cardiomediastinal silhouette is within normal limits. There is no focal lung consolidation or pleural effusion. No evidence of pulmonary edema or pneumothorax. IMPRESSION: No acute cardiopulmonary disease.
--- NOTE | 2020-10-04 23:59 | EKG REPORT ---
SEVERITY:- NORMAL ECG - SINUS RHYTHM : Confirmed by: Angely Monroy 04-Oct-2020 23:58:35
[2020-10-05 00:03] LABS: ABSOLUTE BASOPHILS # (AUTO) 0.1 10^3/uL (0.0-0.2); ABSOLUTE EOSINOPHILS # (AUTO) 0.4 10^3/uL (0.0-0.6); ABSOLUTE MONOCYTES (AUTO) 0.8 10^3/uL (0.1-1.4); ABSOLUTE NEUT (AUTO) 6.5 10^3/uL (1.7-8.2); BASOPHILS % (AUTO) 0.6 % (0-2); EOSINOPHILS % (AUTO) 3.8 % (0-6); HEMATOCRIT 34.2 % (36.0-47.0); HEMOGLOBIN 11.3 g/dL (12.0-15.5); MEAN CORPUSCULAR HEMOGLOBIN 26.2 pg (27.0-33.4); MEAN CORPUSCULAR VOLUME 79 fl (80-97); MONOCYTES % (AUTO) 7.8 % (3-13); PLATELET COUNT 236 10^3/uL (150-450); RED BLOOD COUNT 4.31 10^6/uL (3.72-5.28); RED CELL DISTRIBUTION WIDTH 13.8 % (11.5-14.0); SEGMENTED NEUTROPHILS % (AUTO) 59.8 % (42-78); TOTAL CELLS COUNTED % (AUTO) 100 %; WHITE BLOOD COUNT 10.8 10^3/uL (4.0-10.5)
[2020-10-05 00:22] LABS: ALBUMIN 4.5 g/dL (3.5-5.0); ALKALINE PHOSPHATASE 49 U/L (38-126); ANION GAP 9 (5-19); ASPARTATE AMINO TRANSFERASE 21 U/L (14-36); BILIRUBIN,DIRECT 0.1 mg/dL (0.0-0.4); BILIRUBIN,TOTAL 0.3 mg/dL (0.2-1.3); BLOOD UREA NITROGEN 13 mg/dL (7-20); CARBON DIOXIDE 27 mmol/L (22-30); CHLORIDE 103 mmol/L (98-107); CREATINE KINASE 132 U/L (30-135); GLUCOSE 136 mg/dL (75-110); POTASSIUM 4.5 mmol/L (3.6-5.0); TOTAL PROTEIN 7.5 g/dL (6.3-8.2)
[2020-10-05 00:50] LABS: APPEARANCE,URINE CLEAR; BILIRUBIN,URINE NEGATIVE (NEGATIVE); COLOR,URINE YELLOW; GLUCOSE, URINE NEGATIVE (NEGATIVE); KETONES,URINE NEGATIVE (NEGATIVE); LEUKOCYTE ESTERASE,URINE MODERATE (NEGATIVE); NITRITE,URINE NEGATIVE (NEGATIVE); PROTEIN,URINE NEGATIVE (NEGATIVE); URINE SPECIFIC GRAVITY 1.025; UROBILINOGEN,URINE NEGATIVE mg/dL (<2.0)
--- NOTE | 2020-10-05 06:50 | ER Document Report ---
ED General - General Chief Complaint: Palpitations Stated Complaint: REPORTS RAPID HEART RATE Time Seen by Provider: 10/04/20 21:46 Primary Care Provider: MARION FERRIS MD [ACTIVE STAFF] - 10/05/20 (Call the office today at 9 AM to schedule an appointment to be seen later today.) Mode of Arrival: Ambulatory TRAVEL OUTSIDE OF THE [place] IN LAST 30 DAYS: No - HPI Context: 30-year-old female with a history of of palpitations of unknown etiology p resents to the emergency department complaining of palpitations that started at approximately 2100 hrs. last night. Patient states that she was just sitting on the couch and the palpitations started, lasting about 10 minutes and it made her body feel like she had [id number] all over her. Patient is currently being seen by a chorus master and is wearing a Holter monitor. Patient pushed the event button on the monitor at the time the palpitations started. Patient describes the sensation as her heart "trying to beat out of my chest." Patient denies fever, chills, chest pain, shortness of breath. Patient is seen a neurologist and a psychiatrist as well because she has been told that the etiology of the palpitations could be cardiac, due to anxiety or neurological in origin. Patient denies exacerbating factors and denies alleviating factors. Patient is currently taking metoprolol 25 mg twice daily along with hydroxyzine 25 mg p.o. twice daily. Patient denies history of Covid positive and flexion. Patient denies loss of sense of taste or loss of sense of smell. Patient denies known exposure to Covid 19+ persons or persons under investigation for Covid. Associated symptoms: Other - See HPI Exacerbated by: Other - See HPI Relieved by: Other - See HPI Similar symptoms previously: Yes - Related Data Allergies/Adverse Reactions: No Known Allergies Allergy (Verified 09/11/20 17:17) Home Medications: Metoprolol. Hydroxyzine Past Medical History - General Information source: Patient - Social History Smoking Status: Never Smoker Frequency of alcohol use: None Drug Abuse: None Lives with: Family Family History: Reviewed & Not Pertinent Patient has suicidal ideation: No Patient has homicidal ideation: No - Past Medical History Cardiac Medical History: Reports: Hx Hypertension Renal/ Medical History: Denies: Hx Peritoneal Dialysis Psychiatric Medical History: Reports: Hx Anxiety, Hx Depression Past Surgical History: Reports: Hx Section, Hx Oral Surgery - wisdom teeth - Immunizations Immunizations up to date: Yes Review of Systems - Review of Systems Constitutional: No symptoms reported EENT: No symptoms reported Cardiovascular: Palpitations Respiratory: No symptoms reported Gastrointestinal: No symptoms reported Genitourinary: No symptoms reported Female Genitourinary: No symptoms reported Musculoskeletal: No symptoms reported Skin: No symptoms reported Hematologic/Lymphatic: No symptoms reported Neurological/Psychological: See HPI - Paresthesias, Anxiety -: Yes All other systems reviewed and negative Physical Exam - Vital signs Vitals: Temp Pulse Resp BP Pulse Ox 98.2 F 95 17 155/80 H 99 10/04/20 21:39 10/04/20 21:39 10/04/20 21:39 10/04/20 21:39 10/04/20 21:39 - Notes Notes: CONSTITUTIONAL [Vital signs reviewed, Patient appears comfortable, Alert and oriented X 3, Normal stature.] HEAD [Atraumatic, Normocephalic.] EYES [Eyes are normal to inspection, No discharge from eyes, Extraocular muscles intact, Sclera are normal, Conjunctiva are normal.] ENT [External ears normal to inspection, Nose examination normal, Mouth normal to inspection.] NECK [Normal ROM, No jugular venous distention, No meningeal signs, ] RESPIRATORY CHEST [Chest is nontender, Breath sounds normal, No respiratory distress.] CARDIOVASCULAR [RRR, No murmurs, Normal S1 S2, No rub, No gallop.] ABDOMEN [Abdomen is nontender, No pulsatile masses, No other masses, Bowel sounds normal, No distension, No peritoneal signs, No hernias.] BACK [There is no CVA Tenderness, There is no tenderness to palpation, Normal inspection.] UPPER EXTREMITY [Inspection normal, No cyanosis, No clubbing, No edema, LOWER EXTREMITY [Inspection normal, No cyanosis, No clubbing, No edema, No calf tenderness, NEURO [No focal motor deficits, No focal sensory deficits, Speech normal.] SKIN [Skin is warm, Skin is dry, Skin is normal color.] PSYCHIATRIC [Normal affect. ] Course - Re-evaluation Re-evalutation: 10/05/20 06:57 Results of ED MSE discussed with patient. All questions were answered prior to discharge. Emergency signs and symptoms, reasons to return return to the emergency department discussed with patient. - Vital Signs Vital signs: Temp Pulse Resp BP Pulse Ox 97.9 F 82 16 112/63 99 10/05/20 02:15 10/05/20 02:15 10/05/20 02:15 10/05/20 02:15 10/05/20 02:15 - Laboratory Result Diagrams: 10/04/20 23:46 10/04/20 23:46 Laboratory results interpreted by me: 10/04/20 10/04/20 10/04/20 23:45 23:46 23:46 WBC 10.8 H Hgb 11.3 L Hct 34.2 L MCV 79 L MCH 26.2 L Glucose 136 H Ur Leukocyte Esterase MODERATE H - Diagnostic Test Radiology reviewed: Reports reviewed - EKG Interpretation by Me Additional EKG results interpreted by me: 10/05/20 06:50 EKG obtained on 10/04/2020 at 2126 hrs. was interpreted by this MD. Findings: Normal sinus rhythm, rate 93, normal axis, MT interval appears to be within normal limits, P waves proceed QRS complexes, QRS complex appears narrow, QTC is 463, there are no obvious patterns of ST segment elevation, depression or reciprocal changes similar to suggest acute myocardial ischemia or infarction. When compared with previous EKG from 09/11/2020 there are no obvious changes on gross morphology between the 2 EKGs. Impression: Normal sinus rhythm with nonspecific ST segments. - Consults Dr. Ferris Time consulted: 06:40 - Dr. Ferris stated that the patient could call his office today at 9 AM to be seen later today about her palpitations. Reason for consultation: 10/05/20 06:59 palpitations Consulted provider: follow-up in office Discharge - Discharge Clinical Impression: Palpitations Condition: Stable Disposition: HOME, SELF-CARE Instructions: Palpitations (Irregular or Rapid Heartrate) ([facility]) Additional Instructions: Return to the Emergency Department without delay if any worse. HOME CARE INSTRUCTIONS & INFORMATION: Thank you for choosing us for your medical needs. We hope you're satisfied with the care you received. After you leave, you must properly care for your problem and, at the same time, observe its progress. Any condition can change. Some illnesses can change rapidly over hours or days. If your condition worsens, return to the Emergency Department or see your physician promptly. ABOUT YOUR X-RAYS AND EKG'S: If you had an EKG or X-rays taken, they have been read by the Emergency Physician. The X-rays and EKG's will also be read by a Radiologist or Clinical Rehabilitation Coordinator within 24 hours. If discrepancies are noted, you will be notified by telephone. Please be certain the ED has a correct telephone number & address where you can be reached. Also, realize that some fractures or abnormalities do not show up on initial X-rays. If your symptoms continue, see your physician. ABOUT YOUR LABORATORY TEST: If you had laboratory tests, the results have been reviewed by the Emergency Physician. Some test results (for example cultures) may not be available for several days. You will be contacted if any test result shows you need additional treatment. Please be certain the ED has a correct telephone number and address where you can be reached. ABOUT YOUR MEDICATIONS: You will receive instructions on how to take your medicine on the prescription label you receive. Additional information may be provided by the Pharmacy. If you have questions afterwards, call the ED for clarification or further instructions. Some prescribed medications may cause drowsiness. Do not perform tasks such as driving a car or operating machinery without consulting your Pharmacist. If you feel you need a refill of pain medication, your condition will need re-evaluation. Please do not call for a refill of any medication. ABOUT YOUR SIGNATURE: Signature of this document acknowledges to followin. Understanding that you received emergency treatment and that you may be released before al medical problems are known or treated. Please be certain the ED has a correct phone number & address where you can be reached. 2. Acknowledgement that you will arrange for follow-up care as recommended. 3. Authorization for the Emergency Physician to provide information to your follow-up Physician in order to maximize your care. AT ANY TIME, IF YOUR SYMPTOMS CHANGE SIGNIFICANTLY OR WORSEN OR YOU DEVELOP NEW SYMPTOMS, RETURN TO THE EMERGENCY DEPARTMENT IMMEDIATELY FOR RE-EVALUATION. OUR GOAL IS TO PROVIDE EXCELLENT MEDICAL CARE! WE HOPE THAT WE HAVE MET YOUR EXPECTATIONS DURING YOUR EMERGENCY DEPARTMENT VISIT AND THAT YOU FEEL YOU HAVE RECEIVED EXCELLENT CARE! Palpitations (Irregular/Rapid Heartrate) Irregular or rapid heartbeat is called "palpitation." To diagnose the cause of palpitation, we have to "catch it in the act" with an EKG. Sinus Tachycardia: This is a rapid (but NORMAL) rhythm that can be due to fever, pain, anxiety, lack of sleep, over-exertion, or drugs. Cold medications, caffeine, and diet pills are particularly likely to cause tachycardia. Usually, all that's required is rest, reassurance, and avoiding caffeine, alcohol, nicotine, and unnecessary medicines. Paroxysmal Atrial Tachycardia (PAT): This abnormally rapid heartbeat is caused by a "short circuit" in the electrical system of the heart. It is not dangerous, unless other heart disease is present. These attacks of PAT may occur occasionally for years. Medication is available for treatment. Paroxysmal Atrial Fibrillation or Atrial Flutter: This is irregular electrical activity in the upper heart chamber. These abnormal rhythms often occur with valve disease or in hearts damaged by hardening of the arteries. These rhythms usually require further testing, for example a cardiac echo. Premature Beats: Extra beats occur more commonly after caffeine, nicotine, alcohol, cold pills, diet pills. Emotional stress or fatigue also provoke them. Extra beats are only dangerous when heart disease is present. They usually n eed no treatment. If they're frequent, or if evidence of heart disease develops, medication can be given to suppress them. If we were unable to "catch" the palpitations on EKG, you should try to get an EKG immediately if the symptoms begin again. Contact the physician at once if you develop persistent lightheadedness, shortness of breath, chest pain, or swelling of the ankles. Referrals: MARION FERRIS MD [ACTIVE STAFF] - 10/05/20 (Call the office today at 9 AM to schedule an appointment to be seen later today.)
[2020-10-05 07:09] VITALS: BP 114/56
== END 2020-10-05 07:13 | disposition home or self-care (01) ==
LOC: ER 21:20
DX: R00.2 Palpitations (principal); F41.9 Anxiety disorder, unspecified; R20.2 Paresthesia of skin; Z79.899 Other long term (current) drug therapy
CPT/HCPCS: 36415; 71046; 80053; 81001; 82550; 83690; 83735; 84484; 84703; 85025; 93005; 93010; 99285